=== PATIENT | female | born 1960 | race Caucasian/White ===

== ENCOUNTER 2020-07-08 08:54 | Outpatient (CLI) | payer BC, SELFPAY ==
--- NOTE | ~2020-07-08 | MM_ITS ---
EXAMINATION: MM screening [facility] BI w alen HISTORY: Screening TECHNIQUE: Craniocaudal and mediolateral oblique 3-D tomosynthesis images were obtained and synthetic 2-D images were generated. CAD analysis was submitted and interpreted. COMPARISON: Comparison to multiple prior studies sequentially, with oldest reviewed study dated 12/2013. BREAST PARENCHYMAL COMPOSITION: There are scattered areas of fibroglandular density. FINDINGS: There is no evidence of suspicious mass, calcification, or architectural distortion to sugg est malignancy in either breast. There has been no suspicious interval change. IMPRESSION: 1. No mammographic evidence of malignancy. 2. Recommend routine screening mammography in one year. BI-RADS Category 1: Negative Reviewed, dictated and finalized at location A.
== END 2020-07-08 08:55 | disposition home or self-care (01) ==
LOC: ANHIMG 08:57
PROVIDERS: PCP Family Medicine Sports Medicine; Visit Provider Obstetrics & Gynecology
DX: Z12.31 Encounter for screening mammogram for malignant neoplasm of breast (principal)
CPT/HCPCS: 77063; 77067

== ENCOUNTER 2021-08-01 09:37 | Outpatient (CLI) | payer BC, SELFPAY ==
--- NOTE | ~2021-08-01 | MM_ITS ---
EXAMINATION: MM screening [facility] BI w alen HISTORY: Screening mammogram TECHNIQUE: Craniocaudal and mediolateral oblique 3-D tomosynthesis images were obtained and synthetic 2-D images were generated. CAD analysis was submitted and interpreted. COMPARISON: 07/08/2020, 04/01/2019, 09/28/2017 bilateral screening mammogram examinations BREAST PARENCHYMAL COMPOSITION: There are scattered areas of fibroglandular density. FINDINGS: Possible irregular small masses suggested in the central right breast and in the mid outer upper right breast (MLO Tomosynthesis image 26/80). There is architectural distortion in the upper outer left breast which may be due to prior biopsy. IMPRESSION: 1. Possible right breast masses and architectural distortion on the left 2. Bilateral diagnostic mammography and breast ultrasound examination are recommended. BI-RADS Category 0: Incomplete: Needs additional imaging evaluation. Reviewed, dictated and finalized at location A. IMPRESSION: 1. Possible right breast masses and architectural distortion on the left 2. Bilateral diagnostic mammography and breast ultrasound examination are recom mended. BI-RADS Category 0: Incomplete: Needs additional imaging evaluation.
== END 2021-08-01 09:38 | disposition home or self-care (01) ==
PROVIDERS: PCP Family Medicine Sports Medicine; Visit Provider Student in an Organized Health Care Education/Training Program
DX: Z12.31 Encounter for screening mammogram for malignant neoplasm of breast (principal); R92.8 Other abnormal and inconclusive findings on diagnostic imaging of breast
CPT/HCPCS: 77063; 77067

== ENCOUNTER 2021-09-01 12:58 | Outpatient (CLI) | payer BC, SELFPAY ==
--- NOTE | ~2021-09-01 | MMUS_ITS ---
EXAMINATION: MM diagnostic om[facility] BI w alen, US breast BI complete HISTORY: Possible right breast mass and left breast architectural distortion reported on 08/01/2021 b ilateral screening mammogram TECHNIQUE: Additional 3-D tomosynthesis images of both breasts were performed and synthetic 2-D image s were generated. CAD analysis was submitted and interpreted. High resolution bilateral complete [facility] [facility] ultrasound including all 4 quadrants and subareolar areas was performed. COMPARISON: 08/01/2021 bilateral screening mammogram FINDINGS: MAMMOGRAPHIC FINDINGS: History of prior benign left breast biopsy in 1996. No reproducible suspicious mass or architectural distortion is noted in either breast. ULTRASOUND: In the left breast at 12:00 5 cm from the nipple there is a parallel circumscribed sonolucency measur ing 2.1 x 5.8 x 5.1 mm, consistent with small cyst. No suspicious mass or shadowing of either breast is evident. IMPRESSION: 1. Benign finding; no mammographic evidence of malignancy 2. Routine annual mammographic screening is recommended. BI-RADS Category 2: Benign finding(s). Reviewed, dictated and finalized at location A. 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 Benign finding; no mammographic evidence of malignancy 2. Routine annual mammographic screening is recommended. BI-RADS Category 2: Benign finding(s).
== END 2021-09-01 12:59 | disposition home or self-care (01) ==
LOC: ANHIMG 13:01
PROVIDERS: PCP Family Medicine Sports Medicine; Visit Provider Obstetrics & Gynecology
DX: N60.02 Solitary cyst of left breast (principal); R92.8 Other abnormal and inconclusive findings on diagnostic imaging of breast
CPT/HCPCS: 76641; 77062; 77066; G0279

== ENCOUNTER 2022-10-13 14:07 | Outpatient (CLI) | payer BC, SELFPAY ==
--- NOTE | ~2022-10-13 | MM_ITS ---
EXAMINATION: MM screening [facility] BI w alen HISTORY: Screening mammogram TECHNIQUE: Craniocaudal and mediolateral oblique 3-D tomosynthesis images were obtained and synthetic 2-D images were generated. CAD analysis was submitted and interpreted. COMPARISON: 09/01/2021 bilateral diagnostic mammography and bilateral complete breast ultrasound exam ination 08/01/2021, 07/08/2020, 04/01/2019 bilateral screening mammogram examinations BREAST PARENCHYMAL COMPOSITION: There are scattered areas of fibroglandular density. FINDINGS: There is no evidence of suspicious mass, calcification, or architectural distortion to sugg est malignancy in either breast. There has been no suspicious interval change. IMPRESSION: 1. No mammographic evidence of malignancy. 2. Recommend routine screening mammography in one year. BI-RADS Category 1: Negative Reviewed, dictated and finalized at location A. 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
== END 2022-10-13 14:08 | disposition home or self-care (01) ==
PROVIDERS: PCP Family Medicine Sports Medicine; Visit Provider Obstetrics & Gynecology
DX: Z12.31 Encounter for screening mammogram for malignant neoplasm of breast (principal)
CPT/HCPCS: 77063; 77067

== ENCOUNTER 2023-02-12 02:33 | Day surgery (SDC) | payer BC, SELFPAY ==
[2023-01-29 13:52] VITALS: BMI 29.7
--- NOTE | 2023-02-11 17:04 | PM.HPGS ---
History of Present Illness History of Present Illness Consent: Risks, benefits, and alternatives have been discussed and questions answered. Patient agrees to proceed with procedure. Chief complaint: GERD, neoplasm screening Narrative: Darshana Cheema is a 63 year old female who, despite taking omeprazole 40 mg b.i.d., is having increasing reflux symptoms. For several years she has had vague nearly continuous discomfort in her upper abdomen. It is worse after certain foods. Doubling the dose of omeprazole did not seem to have any benefit. She is not losing weight. She is also due for screening colonoscopy. Review of Systems Review of Systems: All systems reviewed & are unremarkable except as noted in HPI and below PMFSH Surgical History Surgical History H/O laparoscopy DnC 1988 H/O sinus surgery Social History Social History Smoking status: Never smoker Alcohol intake: current Alcohol use details: rare occasional Substance use: never Substance use type: does not use Living arrangements: with family Spiritual care concerns: No Meds Home Medications and Allergies Home Medications Medication Instructions Recorded Confirmed Type albuterol sulfate 90 mcg/actuation 90 mcg inhalation DAILY PRN 05/11/22 01/29/23 History aerosol inhaler Shortness Of Breath Or Wheezing estradiol 1 mg tablet 1 mg PO DAILY 05/11/22 01/29/23 History fluticasone 250 mcg-salmeterol 50 1 inh inhalation DAILY 05/11/22 01/29/23 History mcg/dose blistr powdr for inhalation (Advair Diskus) hydrochlorothiazide 25 mg tablet 25 mg PO DAILY 05/11/22 01/29/23 History meloxicam 15 mg tablet 15 mg PO DAILY 05/11/22 01/29/23 History metoprolol succinate 25 mg 1 tablet PO HS 05/11/22 01/29/23 History tablet,extended release 24 hr omeprazole 40 mg capsule,delayed 40 mg PO DAILY 05/11/22 01/29/23 History release Allergies Allergy/AdvReac Type Severity Reaction Status Date / Time prednisone Allergy Mild Palpitation Verified 02/12/23 07:11 s propoxyphene Allergy Unknown Rash Verified 02/12/23 07:11 Exam Const: General: alert Orientation/consciousness: patient oriented x3 Resp: Auscultation: clear to auscultation bilaterally Cardio: Rhythm: regular rhythm GI: GI Palp: Yes Soft to palpation and No Tenderness to palpation present (GI) Neuro: General: patient oriented x3 Assessment and Plan Assessment and plan (1) GERD (gastroesophageal reflux disease): Code(s): K21.9 - Gastro-esophageal reflux disease without esophagitis Status: Acute Assessment and Plan: EGD with possible biopsy or dilatation or cautery. (2) Colon cancer screening: Code(s): Z12.11 - Encounter for screening for malignant neoplasm of colon Status: Acute Assessment and Plan: Colonoscopy with possible biopsy or polypectomy or cautery or injection of substances.
[2023-02-12 07:12] VITALS: BP 155/78; PULSE 65; RESP 18; TEMP 36.3; O2SAT 100
[2023-02-12] MEDS: LACTATED RINGERS 1,000 ML 150 ML IV CONT (07:29)
--- NOTE | 2023-02-12 07:44 | WPDANESEPPF ---
Anes - Initial Pre Proc Eval Procedure: Operation Date: 02/12/23 08:00 Proposed Procedures p Esophagogastroduodenoscopy & Screening Colonoscopy - Alphonse Lauren MD Date/Time: 02/12/23 07:44 Surgeon: Alphonse Lauren MD Pre Op Diagnosis: GERD, neoplasm screening Patient Data Age: 63 Gender: F Height: 1.6 m Weight: 79.1 kg Last Vital Signs Temp 36.3 C L 02/12/23 07:12 Pulse 65 02/12/23 07:12 Resp 18 02/12/23 07:12 BP 155/78 H 02/12/23 07:12 Pulse Ox 100 02/12/23 07:12 O2 Del Method Room Air 02/12/23 07:12 Allergies Allergy/AdvReac Type Severity Reaction Status Date / Time prednisone Allergy Mild Palpitation Verified 02/12/23 07:11 s propoxyphene Allergy Unknown Rash Verified 02/12/23 07:11 Home Medications Medication Instructions Recorded Confirmed Type albuterol sulfate 90 mcg/actuation 90 mcg inhalation DAILY PRN 05/11/22 01/29/23 History aerosol inhaler Shortness Of Breath Or Wheezing estradiol 1 mg tablet 1 mg PO DAILY 05/11/22 01/29/23 History fluticasone 250 mcg-salmeterol 50 1 inh inhalation DAILY 05/11/22 01/29/23 History mcg/dose blistr powdr for inhalation (Advair Diskus) hydrochlorothiazide 25 mg tablet 25 mg PO DAILY 05/11/22 01/29/23 History meloxicam 15 mg tablet 15 mg PO DAILY 05/11/22 01/29/23 History metoprolol succinate 25 mg 1 tablet PO HS 05/11/22 01/29/23 History tablet,extended release 24 hr omeprazole 40 mg capsule,delayed 40 mg PO DAILY 05/11/22 01/29/23 History release Patient hx anesthesia problems: none Family hx anesthesia problems: none Results Review: All pre-operative results and documents have been reviewed as part of the pre-operative evaluation. [facility], LAT[facility] Past Medical History Medical History (Updated 02/12/23 @ 07:47 by Rafita Valentine MD) Anxiety Asthma HTN (hypertension) MVP (mitral valve prolapse) Surgical History Surgical History H/O laparoscopy DnC 1988 H/O sinus surgery 2-1985 Social History Social History Smoking status: Never smoker Alcohol intake: current Alcohol use details: rare occasional Substance use: never Substance use type: does not use Living arrangements: with family Spiritual care concerns: No Anes - Eval Final PreProcedure Day of Procedure 02/12/23 07:44 Patient weight: obese Heart: regular rate and rhythm Lungs: clear to auscultation and normal air movement Airway: Mallampati scale class II Neurological: alert and oriented Last oral intake: >/= 8 hours ASA classification: III Emergent: no Anesthetic plan: proceed Anesthesia type and monitoring: general GIVS Results Review: All pre-operative results and documents have been reviewed as part of the pre-operative evaluation. Informed Consent: The patient's anesthetic plan and its attendant risks and benefits were discussed with the patient/family/POA. Questions were solicited and answers provided to the satisfaction of the patient/family/POA.
--- NOTE | 2023-02-12 08:09 | SUR.OPER ---
EGD: scope in 0754, scope out 0758 COLON: scope in 0806, scope out 0814
[2023-02-12 08:17] VITALS: BP 108/63; PULSE 72; RESP 20; O2SAT 100
[2023-02-12 08:27] VITALS: BP 123/70; PULSE 76; RESP 22; O2SAT 100
[2023-02-12 08:37] VITALS: BP 123/82; PULSE 64; RESP 14; O2SAT 100
== END 2023-02-12 08:45 | disposition home or self-care (01) ==
PROVIDERS: PCP Family Medicine Sports Medicine; Visit Provider Internal Medicine Gastroenterology
PROC: 0DJ08ZZ Inspection of Upper Intestinal Tract, Via Natural or Artificial Opening Endoscopic (ICD-10-PCS; CPT 43235; principal; 2023-02-12 08:00)
DX: Z12.11 Encounter for screening for malignant neoplasm of colon (principal); K64.8 Other hemorrhoids; K21.9 Gastro-esophageal reflux disease without esophagitis; J45.909 Unspecified asthma, uncomplicated; I10 Essential (primary) hypertension; I34.1 Nonrheumatic mitral (valve) prolapse; Z79.51 Long term (current) use of inhaled steroids; E66.9 Obesity, unspecified; Z68.30 Body mass index [BMI] 30.0-30.9, adult
CPT/HCPCS: 45378; 43239; 88305; J2704; J7120

== ENCOUNTER 2024-03-02 14:45 | Outpatient (CLI) | payer BC, SELFPAY ==
--- NOTE | ~2024-03-02 | MM_ITS ---
EXAMINATION: MM screening [facility] BI w alen HISTORY: Screening TECHNIQUE: Craniocaudal and mediolateral oblique 3-D tomosynthesis images were obtained and synthetic 2-D images were generated. CAD analysis was submitted and interpreted. COMPARISON: Comparison to multiple prior studies sequentially, with oldest reviewed study dated 09/04. BREAST PARENCHYMAL COMPOSITION: There are scattered areas of fibroglandular density. FINDINGS: There is no evidence of suspicious mass, calcification, or architectural distortion to sugg est malignancy in either breast. There has been no suspicious interval change. IMPRESSION: 1. No mammographic evidence of malignancy. 2. Recommend routine screening mammography in one year. BI-RADS Category 1: Negative Reviewed, dictated and finalized at location B.
== END 2024-03-02 14:46 | disposition home or self-care (01) ==
PROVIDERS: PCP Family Medicine Sports Medicine; Visit Provider Obstetrics & Gynecology
DX: Z12.31 Encounter for screening mammogram for malignant neoplasm of breast (principal)
CPT/HCPCS: 77063; 77067

== ENCOUNTER 2025-01-05 06:46 | Emergency (ER) | payer BC, SELFPAY ==
[2025-01-05 06:48] VITALS: BP 99/51; PULSE 80; RESP 17; TEMP 36.2; O2SAT 99
--- OUTSIDE RECORDS SUMMARY | 2025-01-05 06:48 | XMS_ITS | Referral Summary ---
Author Organization [facility] Address [address] [place] [address] Care Team Providers Care Supervisor Inspection Name Role Phone Andres Patel MD Primary Care Provider [phone] Allergies No known active allergies Medications No known medications Active Problems No known active problems Immunizations Immunization Administration Dates Next Due Tdap 06/19/2024 Social History Tobacco Use Types Packs/Day Years Used Date Smoking Tobacco: Never Assessed Personal Safety Answer Date Recorded Have you ever been in or are you currently in a harmful physical or emotional relationship or is someone making you feel afraid or unsafe? 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 Gender Identity Not on file Sexual Orientation Not on file Last Filed Vital Signs Vital Sign Reading Time Taken Comments Blood Pressure 151/78 06/19/2024 4:30 PM CDT Pulse 82 06/19/2024 4:30 PM CDT Temperature 36.7 C (98.1 F) 06/19/2024 12:38 PM CDT Respiratory Rate 16 06/19/2024 4:30 PM CDT Oxygen Saturation 97% 06/19/2024 4:30 PM CDT Inhaled Oxygen Concentration - - Weight 77.1 kg (170 lb) 06/19/2024 10:36 AM CDT Height 160 cm (5' 3 ) 06/19/2024 10:36 AM CDT Body Mass Index 30.11 06/19/2024 10:36 AM CDT Plan of Treatment Not on file [employer] [place] [employer] [employer] Care Teams Supervisor Inspection Relationship Specialty Start Date End Date Andres Patel MD [facility] [place] [address] PCP - General Family Medicine 11/02/21
--- OUTSIDE RECORDS SUMMARY | 2025-01-05 06:48 | XMS_ITS | Data Portability ---
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 Chapter 3 of educational DVD was shown. PSG is medically necessary to determine the management of sleep apnea. We discussed with the patient the impact of weight on: Sleep disordered breathing Hypertension Hyperlipidemia OK We discussed with the patient the benefit of PAP therapy on: Sleep disordered breathing Anxiety Hypertension OK Educated the patient on sleep hygiene measures. Relaxing rituals to rest easy, understanding foods with positive and negative impact on sleep, creating a peaceful sleep environment, timing of exercise, using herbal sleep aids, and practicing sleep-friendly meditation were covered. To determine how much sleep is needed, the patient will assess where she falls on the spectrum, examine what lifestyle factors such as work schedules and stress are affecting the quality and quantity of sleep. In general, adults need 7-9 hours of sleep. Educated the patient regarding foods that promote sleep. These include but are not limited to cherries, bananas, toast, oatmeal, and warm milk. Educated the patient regarding foods and drinks to avoid before bedtime. These include but are not limited to aged cheese, chocolate, spicy foods, tomato-based sauces, soy, ginseng tea and processed meat. Advocated influenza vaccination annually and pneumonia vaccination in 2026. Advocated weight loss through diet and exercise. Patient's ideal body weight according to height and gender is up to Encouraged patient to adjust caloric intake to maintain/achieve ideal body weight, emphasizing on fruits, vegetables, whole grains, and fat-free or low-fat products. These include lean meats, poultry, fish, beans, eggs, and nuts and foods that are low in saturated fats, trans-fats, cholesterol, salt (sodium), and glycemic index. Stressed the importance of regular exercise up to the patient's capacity limits. In this case, we recommend 20 min daily walking, 2 days a week of resistance training. Patient to monitor BP daily and bring records to PCP for further management. Follow-up: 1 week after titration sleep study Not available 05/17/2023 15:59:01 09/06/2023 09/06/2023 Assessment: Early REM onset Mild OSAHS, AHI = 5 Plan: The following were reviewed and explained to the patient: [facility] home sleep study 04/05/23 AHI = 5, supine AHI = 9 [facility] titration sleep study 08/19/23 sleep onset = 1.5 minute, REM onset = 74.5 minutes, Respironics small Dreamwear nasal mask @ 6-8 cmH2O Educated the patient on problems and solutions associated with positive airway pressure (PAP) use. Difficulty tolerating pressure, mask leaks, intolerance of interface, nasal congestion, claustrophobic response, dry mouth, and unintentional mask removal during sleep were covered. Patient has some difficulty tolerating pressure. Patient is advised to practice wearing PAP daily while awake, lower pressure with or without sleeping on sides, activate PAP ramp feature, have blower checked to make sure pressure is set as prescribed and return to sleep center for consideration of auto-adjusting PAP therapy. Patient experiences claustrophobic response. Patient will practice wearing PAP mask daily while awake and undergo PAP desensitization. We will check fit of patient's mask and provide a sleeker alternative as necessary. Dry mouth is a normal occurrence for people who just start out on PAP therapy because they are not used to air blowing in to the throat to hold open. Dry mouth is exacerbated for people who wear nasal PAP mask and whose jaw drops open during sleep. Not only does this create a much less efficient therapy because of leakage, it also causes dry mouth. There are a couple solutions to help prevent this type of problem. A simple solution would be to wear a chinstrap which essentially holds the jaw in place. A second solution would be a switch to a full face mask which covers both the nose and mouth. Although this is another easy solution, using a full face mask for some could seem claustrophobic or confining. There is no silver bullet solution as no single mask is right for everybody. Sometimes it takes a bit of experimentation to find a PAP mask which best meets the patient's needs as well as fits comfortably. Another tactic is to use a humidifier on your PAP machine. Most new PAP machines have integrated humidifiers. Humidification is chawla when dealing with symptoms of dry mouth because the humidifier can supply both warm and room temperate air. Even a small amount of humidity in the airflow will help nasal passages to stay hydrated. If a person is using both a full face mask and a PAP machine with a heated humidifier and is still experiencing dry mouth, an ill-fitted PAP mask might be causing the problem. Leakage can be caused by a mask that is to large or small, the wrong style mask, the cushion is degraded or simply because the mask's straps aren't adjusted correctly. If leakage occurs, dry air from the room can leak in while humidification escapes. The result is reduced humidification within the circuit and resulting in dry throat and mouth. Finally, beyond factors involving the PAP machine and mask, dry mouth can also be caused or worsened by dehydration. The general recommendation to during eight 8 oz. glasses of water a day might be too little for many people. When people drink large amounts of coffee or other caffeine beverages, or sweat a lot during the day, making sure to rehydrate is an important part of PAP therapy. [employer]Med Air Sense 11 auto set unit with heated humidifier, supplies, Respironics small Dreamwear nasal mask @ 6-8 cmH2O ordered. Further titration will be based on clinical response. Provided the patient with a list of local home care stores where positive airway pressure (PAP) units, accoutrement, and services are available. Home care store selection is based on patient's insurance carrier. Patient will setup an appointment with [facility] for supplies and pressure adjustments. A major predictor of success with use of PAP is follow-up with both the respiratory supplier and the treating physician. The respiratory supplier optimally will follow-up within two weeks after starting use while the treating physician optimally will follow-up within 90 days after starting therapy to assess adherence and effectiveness of treatment. The download results can show the treating physician information about adherence to treatment, residual AHI while on treatment and presence of large mask leakage. This information is especially helpful if the patient has residual sleepiness despite treatment. General information on sleep disordered breathing, evaluation of sleep disordered breathing, treatment with PAP therapy, and living with PAP therapy were covered. We discussed with the patient the impact of weight on: Sleep disordered breathing Hypertension Hyperlipidemia OK We discussed with the patient the benefit of PAP therapy on: Sleep disordered breathing Anxiety Hypertension OK Educated the patient on sleep hygiene measures. Relaxing rituals to rest easy, understanding foods with positive and negative impact on sleep, creating a peaceful sleep environment, timing of exercise, using herbal sleep aids, and practicing sleep-friendly meditation were covered. To determine how much sleep is needed, the patient will assess where she falls on the spectrum, examine what lifestyle factors such as work schedules and stress are affecting the quality and quantity of sleep. In general, adults need 7-9 hours of sleep. Educated the patient regarding foods that promote sleep. These include but are not limited to cherries, bananas, toast, oatmeal, and warm milk. Educated the patient regarding foods and drinks to avoid before bedtime. These include but are not limited to aged cheese, chocolate, spicy foods, tomato-based sauces, soy, ginseng tea and processed meat. Advocated influenza vaccination annually and pneumonia vaccination in 2026. Advocated weight loss through diet and exercise. Patient's ideal body weight according to height and gender is up to 135 lbs. Encouraged patient to adjust caloric intake to maintain/achieve ideal body weight, emphasizing on fruits, vegetables, whole grains, and fat-free or low-fat products. These include lean meats, poultry, fish, beans, eggs, and nuts and foods that are low in saturated fats, trans-fats, cholesterol, salt (sodium), and glycemic index. Stressed the importance of regular exercise up to the patient's capacity limits. In this case, we recommend 20 min daily walking, 2 days a week of resistance training. Patient to monitor BP daily and bring records to PCP for further management. Follow-up: 3 months, December 2023 Not available 09/28/2023 17:32:21 12/28/2023 12/28/2023 Assessment: Early REM onset Mild OSAHS, AHI = 5 Plan: The following were reviewed and explained to the patient: [facility] home sleep study 04/05/23 AHI = 5, supine AHI = 9 [facility] titration sleep study 08/19/23 sleep onset = 1.5 minute, REM onset = 74.5 minutes, Respironics small Dreamwear nasal mask @ 6-8 cmH2O PAP compliance downloaded and interpreted x 20 minutes. Data reviewed and explained to the patient. Average apnea/hypopnea index (AHI) is 0.3. Patient used PAP > 4 hours 61% of the time. PAP is set at 6-8 cmH2O. PAP will remain at 6-8 cmH2O. Keep EPR + 2. Ramp start at 4 cmH2O. Keep ramp duration at 10 minutes. Oxygen supplementation: none Patient is benefiting from PAP therapy. Encouraged patient to maintain PAP use more than 70% of the time. Statement of PAP use and benefits will be sent to the home care store. Educated the patient on problems and solutions associated with positive airway pressure (PAP) use. Difficulty tolerating pressure, mask leaks, intolerance of interface, nasal congestion, claustrophobic response, dry mouth, and unintentional mask removal during sleep were covered. Patient has some difficulty tolerating pressure. Patient is advised to practice wearing PAP daily while awake, lower pressure with or without sleeping on sides, activate PAP ramp feature, have blower checked to make sure pressure is set as prescribed and return to sleep center for consideration of auto-adjusting PAP therapy. Patient experiences claustrophobic response. Patient will practice wearing PAP mask daily while awake and undergo PAP desensitization. We will check fit of patient's mask and provide a sleeker alternative as necessary. Dry mouth is a normal occurrence for people who just start out on PAP therapy because they are not used to air blowing in to the throat to hold open. Dry mouth is exacerbated for people who wear nasal PAP mask and whose jaw drops open during sleep. Not only does this create a much less efficient therapy because of leakage, it also causes dry mouth. There are a couple solutions to help prevent this type of problem. A simple solution would be to wear a chinstrap which essentially holds the jaw in place. A second solution would be a switch to a full face mask which covers both the nose and mouth. Although this is another easy solution, using a full face mask for some could seem claustrophobic or confining. There is no silver bullet solution as no single mask is right for everybody. Sometimes it takes a bit of experimentation to find a PAP mask which best meets the patient's needs as well as fits comfortably. Another tactic is to use a humidifier on your PAP machine. Most new PAP machines have integrated humidifiers. Humidification is chawla when dealing with symptoms of dry mouth because the humidifier can supply both warm and room temperate air. Even a small amount of humidity in the airflow will help nasal passages to stay hydrated. If a person is using both a full face mask and a PAP machine with a heated humidifier and is still experiencing dry mouth, an ill-fitted PAP mask might be causing the problem. Leakage can be caused by a mask that is to large or small, the wrong style mask, the cushion is degraded or simply because the mask's straps aren't adjusted correctly. If leakage occurs, dry air from the room can leak in while humidification escapes. The result is reduced humidification within the circuit and resulting in dry throat and mouth. Finally, beyond factors involving the PAP machine and mask, dry mouth can also be caused or worsened by dehydration. The general recommendation to during eight 8 oz. glasses of water a day might be too little for many people. When people drink large amounts of coffee or other caffeine beverages, or sweat a lot during the day, making sure to rehydrate is an important part of PAP therapy. Provided the patient with a list of local home care stores where positive airway pressure (PAP) units, accoutrement, and services are available. Home care store selection is based on patient's insurance carrier. Patient will setup an appointment with [facility] for supplies and pressure adjustments. A major predictor of success with use of PAP is follow-up with both the respiratory supplier and the treating physician. The download results can show the treating physician information about adherence to treatment, residual AHI while on treatment and presence of large mask leakage. This information is especially helpful if the patient has residual sleepiness despite treatment. General information on sleep disordered breathing, evaluation of sleep disordered breathing, treatment with PAP therapy, and living with PAP therapy were covered. We discussed with the patient the impact of weight on: Sleep disordered breathing Hypertension Hyperlipidemia OK We discussed with the patient the benefit of PAP therapy on: Sleep disordered breathing Anxiety Hypertension OK Educated the patient on sleep hygiene measures. Relaxing rituals to rest easy, understanding foods with positive and negative impact on sleep, creating a peaceful sleep environment, timing of exercise, using herbal sleep aids, and practicing sleep-friendly meditation were covered. To determine how much sleep is needed, the patient will assess where she falls on the spectrum, examine what lifestyle factors such as work schedules and stress are affecting the quality and quantity of sleep. In general, adults need 7-9 hours of sleep. Educated the patient regarding foods that promote sleep. These include but are not limited to cherries, bananas, toast, oatmeal, and warm milk. Educated the patient regarding foods and drinks to avoid before bedtime. These include but are not limited to aged cheese, chocolate, spicy foods, tomato-based sauces, soy, ginseng tea and processed meat. Advocated influenza vaccination annually and pneumonia vaccination in 2026. Advocated weight loss through diet and exercise. Patient's ideal body weight according to height and gender is up to 135 lbs. Encouraged patient to adjust caloric intake to maintain/achieve ideal body weight, emphasizing on fruits, vegetables, whole grains, and fat-free or low-fat products. These include lean meats, poultry, fish, beans, eggs, and nuts and foods that are low in saturated fats, trans-fats, cholesterol, salt (sodium), and glycemic index. Stressed the importance of regular exercise up to the patient's capacity limits. In this case, we recommend 20 min daily walking, 2 days a week of resistance training. Patient to monitor BP daily and bring records to PCP for further management. Follow-up: 1 year, December 2024 Not available 12/28/2023 16:21:50 11/29/2024 11/29/2024 Assessment: Early REM onset Mild OSAHS, AHI = 5 Plan: The following were reviewed and explained to the patient: [facility] home sleep study 04/05/23 AHI = 5, supine AHI = 9 [facility] titration sleep study 08/19/23 sleep onset = 1.5 minute, REM onset = 74.5 minutes, Respironics small Dreamwear nasal mask @ 6-8 cmH2O PAP compliance downloaded and interpreted x 20 minutes. Data reviewed and explained to the patient. Average apnea/hypopnea index (AHI) is 0.6. Patient used PAP > 4 hours 67% of the time. PAP is set at 6-8 cmH2O. PAP will remain at 6-8 cmH2O. Keep EPR + 2 multimedia coordinator. Ramp start at 4 cmH2O. Keep ramp duration at 10 minutes. Keep humidifier level on automatic mode. Oxygen supplementation: none Patient is benefiting from PAP therapy. Encouraged patient to maintain PAP use more than 70% of the time. Statement of PAP use and benefits will be sent to the home care store. Educated the patient on problems and solutions associated with positive airway pressure (PAP) use. Difficulty tolerating pressure, mask leaks, intolerance of interface, nasal congestion, claustrophobic response, dry mouth, and unintentional mask removal during sleep were covered. Patient has some difficulty tolerating pressure. Patient is advised to practice wearing PAP daily while awake, lower pressure with or without sleeping on sides, activate PAP ramp feature, have blower checked to make sure pressure is set as prescribed and return to sleep center for consideration of auto-adjusting PAP therapy. Patient experiences claustrophobic response. Patient will practice wearing PAP mask daily while awake and undergo PAP desensitization. We will check fit of patient's mask and provide a sleeker alternative as necessary. Dry mouth is a normal occurrence for people who just start out on PAP therapy because they are not used to air blowing in to the throat to hold open. Dry mouth is exacerbated for people who wear nasal PAP mask and whose jaw drops open during sleep. Not only does this create a much less efficient therapy because of leakage, it also causes dry mouth. There are a couple solutions to help prevent this type of problem. A simple solution would be to wear a chinstrap which essentially holds the jaw in place. A second solution would be a switch to a full face mask which covers both the nose and mouth. Although this is another easy solution, using a full face mask for some could seem claustrophobic or confining. There is no silver bullet solution as no single mask is right for everybody. Sometimes it takes a bit of experimentation to find a PAP mask which best meets the patient's needs as well as fits comfortably. Another tactic is to use a humidifier on your PAP machine. Most new PAP machines have integrated humidifiers. Humidification is chawla when dealing with symptoms of dry mouth because the humidifier can supply both warm and room temperate air. Even a small amount of humidity in the airflow will help nasal passages to stay hydrated. If a person is using both a full face mask and a PAP machine with a heated humidifier and is still experiencing dry mouth, an ill-fitted PAP mask might be causing the problem. Leakage can be caused by a mask that is to large or small, the wrong style mask, the cushion is degraded or simply because the mask's straps aren't adjusted correctly. If leakage occurs, dry air from the room can leak in while humidification escapes. The result is reduced humidification within the circuit and resulting in dry throat and mouth. Finally, beyond factors involving the PAP machine and mask, dry mouth can also be caused or worsened by dehydration. The general recommendation to during eight 8 oz. glasses of water a day might be too little for many people. When people drink large amounts of coffee or other caffeine beverages, or sweat a lot during the day, making sure to rehydrate is an important part of PAP therapy. Provided the patient with a list of local home care stores where positive airway pressure (PAP) units, accoutrement, and services are available. Home care store selection is based on patient's insurance carrier. Patient will setup an appointment with [facility] for supplies and pressure adjustments. A major predictor of success with use of PAP is follow-up with both the respiratory supplier and the treating physician. The download results can show the treating physician information about adherence to treatment, residual AHI while on treatment and presence of large mask leakage. This information is especially helpful if the patient has residual sleepiness despite treatment. General information on sleep disordered breathing, evaluation of sleep disordered breathing, treatment with PAP therapy, and living with PAP therapy were covered. We discussed with the patient the impact of weight on: Sleep disordered breathing Hypertension Hyperlipidemia OK We discussed with the patient the benefit of PAP therapy on: Sleep disordered breathing Anxiety Hypertension OK Educated the patient on sleep hygiene measures. Relaxing rituals to rest easy, understanding foods with positive and negative impact on sleep, creating a peaceful sleep environment, timing of exercise, using herbal sleep aids, and practicing sleep-friendly meditation were covered. To determine how much sleep is needed, the patient will assess where she falls on the spectrum, examine what lifestyle factors such as work schedules and stress are affecting the quality and quantity of sleep. In general, adults need 7-9 hours of sleep. Educated the patient regarding foods that promote sleep. These include but are not limited to cherries, bananas, toast, oatmeal, and warm milk. Educated the patient regarding foods and drinks to avoid before bedtime. These include but are not limited to aged cheese, chocolate, spicy foods, tomato-based sauces, soy, ginseng tea and processed meat. Advocated influenza vaccination annually and pneumonia vaccination in 2026. Advocated weight loss through diet and exercise. Patient's ideal body weight according to height and gender is up to 135 lbs. Encouraged patient to adjust caloric intake to maintain/achieve ideal body weight, emphasizing on fruits, vegetables, whole grains, and fat-free or low-fat products. These include lean meats, poultry, fish, beans, eggs, and nuts and foods that are low in saturated fats, trans-fats, cholesterol, salt (sodium), and glycemic index. Stressed the importance of regular exercise up to the patient's capacity limits. In this case, we recommend 20 min daily walking, 2 days a week of resistance training. Patient to monitor BP daily and bring records to PCP for further management. Follow-up: 1 year, November 2025 Not available 11/29/2024 08:59:36 Plan of Treatment Reminders Order Date Submit Date Provider Last Modified By Organization Details Last Modified Time Details Appointments Follow Up 2025 07:30A Farshad Howard MD Not available Not available Not available Lab None recorded. Referral None recorded. Procedures None recorded. Surgeries None recorded. Imaging polysomno gram, titration study - no auth required 2022 023 [facility], [address] [place], [address], 09/28/2023 17:58:37 Medication Orders None recorded. Patient TargetsNo targets recorded. Patient InstructionsNo instructions recorded. Reason for Referral None Reported. Results Created Date Observation Date Name Description Value Unit Range Abnormal Flag Note LastModifiedBy Organization Detail LastModifiedTime 09/28/2004/05/2023 home sleep study No observ ation record ed. [facility] Not Available 2022 17:50:08 09/28/20 23 08/19/2023 polys omnog [place], titra tion study No observ ation record ed. [facility] [address] [place], [address], 09/28/2023 17:58:37 Result Notes None recorded. Problems Name Problem SNOMED Code Status Onset Date Resolution Date Notes Provider Name and Address Organization Details Recorded Time Obstructive sleep apnea syndrome [id number] Active 023 Darrel Howard MD [address] [facility], [facility] [address], [place], [address], [facility] 16:05:37 Notes:Medical History: Anxie ty Bilateral tinnitus Rhinosinusitis with postnasal drip Early REM onset Obesity with mild OSAHS, AHI = 5, 04/05/23, on autoCPAP c/o IVRC Hypertension Hyperlipidemia MVP OK Vit B12 deficiency Procedure History: ENSS 1993, 1996 Hemorrhoidectomy 1997 Cardiac catheterization 1998 Bilateral bunionectomy 1999 Cholecystectomy 2000 DAVID-BSO 2002 Colonoscopies 2013, 2022 EGD 2016 Cervical fusion 2016 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 Procedures Surgical History Date Name Laterality Status Provider Name and Address Organization Details Recorded Time Hysterectomy completed Johanne Pete MA [facility] 05/17/2023 15:34:57 Cholecystectomy completed Johanne castro MA [facility] 05/17/2023 15:35:03 radical bunionectomy completed Johanne Pete MA [facility] 05/17/2023 15:35:16 Lumpectomy completed Johanne Pete MA [facility] 05/17/2023 15:35:43 Sinus Surgery completed Johanne Pete MA [facility] 05/17/2023 15:35:50 Sinus Surgery completed Johanne Pete MA [facility] 05/17/2023 15:35:53 Neck Surgeries completed Johanne Pete MA [facility] 05/17/2023 15:36:03 Imaging Results Imaging Date Name Status LastModified by Organiz ation Details LastModified Time 04/05/2023 home sleep study completed [facility] Information not available 09/28/2023 17:50:08 08/19/2023 polysomnogram, titration study completed [facility] [address] [place], [address], 09/28/2023 17:58:37 Procedure Notes None recorded. Medical Equipment None Reported. Allergies Allergen ID Allergen Name Allergen Category Reaction Reaction Severity Criticality Documentation Date Start Date Code Code System Note Provider Name and Address Organization Details Recorded Time 91029 prednison e medicatio n Not available Not available Not available 04/07/2023 8640 RxNorm Darrel Howard MD [address] [facility], [address] [address], [place], [address], [facility] [employer] [facility] 19:43:04 67162 Acetamino phen / Propoxyph leonor medicatio n Not available Not available Not available 04/07/2023 [id number] RxAlexei Howard MD [address] [facility], [facility] [address], [place], [address], [facility] [employer] [facility] 19:43:12 Medications Name Sig Start Date Stop Date Status Note LastModified by Organization Details LastModified Time binaxnow cov kit home benoit 05/17 completed Not Available Not Available Not Available cyclobenzap rine 10 mg tablet TAKE 1 TABLET BY MOUTH EVERY NIGHT AT BEDTIME NEEDED active Not Available Not Available No t Available amoxicillin 500 mg capsule TAKE ONE CAPSULE BY MOUTH EVERY 8 HOURS UNTIL ALL TAKEN 05/17 completed Not Available Not Available Not Available doxycycline hyclate 100 mg capsule 05/17 completed Not Available Not Available Not Available trazodone 50 mg tablet TAKE 1 TABLET BY MOUTH EVERY NIGHT AT BEDTIME 05/17 completed Not Available Not Available Not Available azithromyci n 250 mg tablet TAKE 2 TABLETS BY MOUTH FOR 1 DAY THEN TAKE 1 TABLET BY MOUTH DAILY FOR 4 DAYS 11/17 completed Not Available Not Available Not Available ibuprofen 800 mg tablet TAKE 1 TABLET BY MOUTH THREE TIMES DAILY active Not Available Not Available No t Available fluconazole 150 mg tablet TAKE 1 TABLET BY MOUTH DAILY 12/27 completed Not Available Not Available Not Available meloxicam 15 mg tablet TAKE 1 TABLET BY MOUTH EVERY DAY 11/29 completed Not Available Not Available Not Available acetaminoph en 300 mg-codeine 30 mg tablet TAKE 1 TABLET BY MOUTH EVERY 4 TO 6 HOURS NEEDED FOR PAIN 05/17 completed Not Available Not Available Not Available sulfamethox azole 800 mg-trimetho prim 160 mg tablet 05/17 completed Not Available Not Available Not Available omeprazole 40 mg capsule,del ayed release TAKE 1 CAPSULE BY MOUTH TWICE DAILY 12/27 completed Not Available Not Available Not Available meloxicam 7.5 mg tablet Take 1 tablet 3 times a day by oral route. active Not Available Not Available No t Available hydrocortis one 2.5 % topical cream with perineal applicator APPLY RECTALLY TO THE AFFECTED AREA TWICE DAILY DIRECTED active Not Available Not Available No t Available estradiol 1 mg tablet TAKE 1 TABLET BY MOUTH EVERY DAY active Not Available Not Available No t Available pantoprazol e 40 mg tablet,noah yed release TAKE 1 TABLET BY MOUTH EVERY DAY active Not Available Not Available No t Available tacrolimus 0.1 % topical ointment APPLY EXTERNALL Y TO RASH AREAS ON FACE TWICE DAILY FOR FLARES active Not Available Not Available No t Available lidocaine 5 % topical patch active Not Available Not Available Not Available hydroxyzine HCl 25 mg tablet TAKE 1 TABLET BY MOUTH EVERY 8 HOURS NEEDED 05/17 completed Not Available Not Available Not Available hydrochloro thiazide 25 mg tablet TAKE 1 TABLET BY MOUTH EVERY DAY 12/27 completed Not Available Not Available Not Available metoprolol succinate ER 25 mg tablet,exte nded release 24 hr TAKE 1 TABLET BY MOUTH EVERY DAY active Not Available Not Available No t Available albuterol sulfate HFA 90 mcg/actuati on aerosol inhaler INHALE 2 PUFFS BY MOUTH EVERY 4 HOURS NEEDED FOR SHORTNESS OF BREATH active Not Available Not Available No t Available cefdinir 300 mg capsule TAKE ONE CAPSULE BY MOUTH TWICE DAILY 11/30 completed Not Available Not Available Not Available diazepam 5 mg tablet PRN before dental appts active Not Available Not Available No t Available amoxicillin 875 mg-potassiu m clavulanate 125 mg tablet TAKE 1 TABLET BY MOUTH TWICE DAILY FOR 7 DAYS 11/29 completed Not Available Not Available Not Available escitalopra m 10 mg tablet TAKE 1 TABLET BY MOUTH EVERY MORNING 05/17 completed Not Available Not Available Not Available hydrochloro thiazide 12.5 mg tablet TAKE 1 TABLET BY MOUTH DAILY active Not Available Not Available No t Available Trelegy Ellipta 100 mcg-62.5 mcg-25 mcg powder for inhalation 05/17 completed Not Available Not Available Not Available Jonn Ellipta 200 mcg-62.5 mcg-25 mcg powder for inhalation INHALE 1 PUFF BY MOUTH DAILY FAST BREATH INHALE QUICKLY AND DEEPLY active Not Available Not Available No t Available BinaxNOW COVID-19 Ag Self Test kit TEST DIRECTED TODAY 05/17 completed Not Available Not Available Not Available Paxlovid 300 mg (150 mg x 2)-100 mg tablets in a dose pack FOLLOW PACKAGE DIRECTION S 05/17 completed Not Available Not Available Not Available Vitals Date Recorded Body weight Body mass index (BMI) Body height Body temperature Heart rate Oxygen saturation Oxygen saturation in Arterial blood by Pulse oximetry Systolic blood pressure Diastolic blood pressure Provider Name and Address Organization Details Last Updated DateTime 3 25100.5 6 g 28.9 kg/m2 160.02 cm 98.3 [degF] 71 /min 97 % 97 % 114 mm[Hg] 68 mm[Hg] Johanne Pete MA [facility] 15:39:05 Date Recorded Heart rate Respiratory rate Provider N lili and Address Organization Details Last Updated DateTime 05/17/2023 71 /min 15 /min Darrel Howard MD [address], [place], [address], [facility] 05/17/2023 15:47:51 Date Recorded Body height Body mass index (BMI) Body weight Body temperature Heart rate Oxygen saturation Oxygen saturation in Arterial blood by Pulse oximetry Systolic blood pressure Diastolic blood pressure Provider Name and Address Organization Details Last Updated DateTime 3 160.02 cm 30.1 kg/m2 45824.7 g 98.2 [degF] 72 /min 97 % 97 % 138 mm[Hg] 80 mm[Hg] Johanne Pete MA [facility] 17:15:27 Date Recorded Heart rate Respiratory rate Provider N lili and Address Organization Details Last Updated DateTime 09/06/2023 72 /min 15 /min Darrel Howard MD [address], [place], [address], [facility] 09/06/2023 17:31:55 Date Recorded Body height Body mass index (BMI) Body weight Body temperature Heart rate Oxygen saturation Oxygen saturation in Arterial blood by Pulse oximetry Systolic blood pressure Diastolic blood pressure Provider Name and Address Organization Details Last Updated DateTime 4 160.02 cm 30.9 kg/m2 20622.2 3 g 98 [degF] 76 /min 96 % 96 % 114 mm[Hg] 68 mm[Hg] Maura Jolley MA [facility] 4 16:04:49 Date Recorded Heart rate Respiratory rate Provider N lili and Address Organization Details Last Updated DateTime 12/28/2023 76 /min 15 /min Darrel Howard MD [address] [facility], [address], [place], [address], [facility] 12/28/2023 16:21:31 Date Recorded Body height Body mass index (BMI) Body weight Body temperature Heart rate Oxygen saturation Oxygen saturation in Arterial blood by Pulse oximetry Systolic blood pressure Diastolic blood pressure Provider Name and Address Organization Details Last Updated DateTime 5 160.02 cm 31.5 kg/m2 49935 g 98.3 [degF] 66 /min 99 % 99 % 110 mm[Hg] 68 mm[Hg] Maura Jolley MA [facility] 5 08:35:05 Date Recorded Heart rate Respiratory rate Provider N lili and Address Organization Details Last Updated DateTime 11/29/2024 66 /min 15 /min Darrel Howard MD [address], [address], [place], [address] [facility] 11/29/2024 08:52:28 Social History Question Answer Notes LastModified by Organizat ion Details LastModified Time Tobacco Smoking Status Never Smoker Johanne Pete MA null, [facility] 05/17/2023 15:33:07 What Is Your Level Of Alcohol Consumption? None Information not available 05/17/2023 What Is Your Level Of Caffeine Consumption? Moderate Information not available 05/17/2023 In The 14 Days Before Symptom Onset, Have You Had Close Contact [facility] While That Case Was Ill? No Information not available 05/17/2023 In The 14 Days Before Symptom Onset, Have You Had Close Contact With A Person Who Is Under Investigation For COVID-19 While That Person Was Ill? No Information not available 05/17/2023 Are You Currently Employed? Yes Information not available 05/17/2023 What Type Of Diet Are You Following? REGULAR Information not available 05/17/2023 Do You Have An Electrostatic Air Filter? 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 Yes Information not available 05/17/2023 Do You Have A Humidifier? No Information not available 05/17/2023 Where Do You Live? [facility] Information not available 12/28/2023 Do You Have Moisture Problems In Your Home? No Information not available 05/17/2023 What Was The Date Of Your Most Recent Tobacco Screening? 11/29/2024 Information not available 11/29/2024 How Many Children Do You Have? 0 Information not available 11/29/2024 Do You Have Any Pets? Yes Information not available 05/17/2023 What Is Your Relationship Status? Information not available 11/29/2024 Do You Use Your Seat Belt Or Car Seat Routinely? Yes Information not available 05/17/2023 Do You Have Smoke And Carbon Monoxide Detectors In Your Home? Yes Information not available 05/17/2023 Are You Passively Exposed To Smoke? Yes Only Outside Information not available 05/17/2023 Do You Feel Stressed (tense, Restless, Nervous, Or Anxious, Or Unable To Sleep At Night)? [id number] Information not available 12/28/2023 Do You Use Any Illicit Or Recreational Drugs? No Information not available 05/17/2023 Do You Use Sunscreen Routinely? No Information not available 05/17/2023 Have You Recently Traveled Abroad? No Information not available 05/17/2023 Do You Have Any Dietary Restrictions? No Information not available 05/17/2023 Sex: Unknown Functional Status Question Answer Note LastModified by Organization D etails LastModified Time What is your exercise level? Moderate Information not available 05/17/2023 Mental Status None recorded. Family History Relationship Description Onset Age of this Age Resolved Age Notes LastModified by Organization Details LastModified Time Brother Obstructive sleep apnea syndrome Not available 2022 15:57:34 Son Obstructive sleep apnea syndrome Not available 2022 15:57:38 Mother Congestive heart failure Not available 2022 15:57:49 Father Malignant tumor of lung Not available 2022 15:58:03 Sister Fibromyalgia Not availab le 05/17/2023 15:58:28 Maternal Uncle Heart disease Not available 2022 15:58:48 Medical History No medical history recorded. Gynecological HistoryNo gynecological history recorded. Obstetrics History GPAL:G 0 P 0 0 0 0 Past Encounters Encounter ID Performer Location Encounter Start Date Encounter Closed Date Diagnosis/Indication Diagnosis SNOMED-CT Code Diagnosis ICD10 Code Diagnosis Note [id number] Darrel Howard MD [facility] [address] [address] 05/17/2023 15:13:38 05/18/2023 09:39:38 Obstructive sleep apnea syndrome 50022348 G47.33 G47.30 G47.36 G47.61 [id number] Darrel Howard MD [facility] [address] [address] 09/06/2023 16:58:38 09/08/2023 09:52:40 Obstructive sleep apnea syndrome 30359565 G47.33 [id number] Darrel Howard MD [facility] [address] [address] 12/28/2023 15:54:45 12/29/2023 08:10:16 Obstructive sleep apnea syndrome 45522725 G47.33 [id number] Darrel Howard MD [facility] [address] [address] 11/29/2024 08:26:11 11/29/2024 09:15:52 Obstructive sleep apnea syndrome 46670652 G47.33 Health Concerns Section Related Observation LastModified by Organization Detai ls LastModified Time None Recorded Concern Status LastModified by Organization Details LastModified Time None Recorded Advance Directives Directive None Recorded Payers Encounter Date Sequence Insurance Name Policy Number Policy Saba Covered Member ID Saba Member ID Guarantor Name 09/06/2023 1 [place] [id number] Darshana P Whiting [id number] Darshana P Whiting 12/28/2023 1 [place] [id number] Darshana P Whiting [id number] Darshana P Whiting 11/29/2024 1 [place] [id number] Darshana P Whiting [id number] Darshana P Whiting Notes Date Note Type Note Provider Name and Address Organization Details Recorded Time 05/17/2023 text/html Primary care/Ref erring provider: Andres Patel MD During the [facility] home sleep study on 04/05/23, AHI = 10, supine AHI = 16.At home, the patient sleeps from 10:30 pm to 5:30 am and wakes up with an alarm. Snoring: moderate, since .Snorting: yesChoking: yesCoughing: noGasping: yesGagging: noSighing: noWitnessed apnea: yesTwitching or jerking of leg(s), arm(s), body, head: yesTeeth grinding: noTeeth clenching: noSleeptalking: yesSleepwalking: noSleep crying: noBedwetting: noTongue/lip/gum/cheek biting: yesSleeping with open mouth: yesSleep paralysis: noHypnagogic hallucinations: noHypnopompic hallucinations: noVivid dreams: noDifficulty with sleep onset: noDifficulty with sleep maintenance: yesSleep interruptions: for no known reasonsPatient wakes up with: fatigue, xerostomia, sore throat, hoarse voice, headaches, cognitive impairment, mobility impairment, dexterity impairmentDaytime cataplexy: noMorning hypersomnolence: noAfternoon hypersomnolence: yesCaffeine sources in diet: coffee 32 oz per day, chocolate 1 candy bar per day Associated medical and psychiatric conditions:Congestive heart failure: noCoronary artery disease: noMyocardial infarction: noHypertension: yesStroke: noBronchial asthma: noChronic obstructive pulmonary disease: noDepression: noBipolar disorder: noAnxiety: yesPanic disorder: noPosttraumatic stress disorder: noAttention deficit and hyperactivity disorder: noObsessive Compulsive disorder: noSchizophrenia: noSchizoaffective disorder: noPersonality disorder: noChronic analgesic use: noChronic sedative/hypnotic use: no EPWORTH SLEEPINESS SCALE (ESS) CHANCE OF DOZING SCORE0 = would never doze1 = slight chance of dozing2 = moderate chance of dozing3 = high chance of dozing SITUATION AND CHANCE OF DOZINGSitting and reading - 3Watching television - 3Sitting inactive in a public place (e.g. a theater or meeting) - 3As a passenger in a car for an hour without a break - 3Lying down to rest in the afternoon when circumstances permit - 3Sitting and talking to someone - 0Sitting quietly after lunch without alcohol - 3In a car, while stopped for a few minutes in the traffic - 0TOTAL SCORE 18Subjectively, patient has a high chance of dozing. Darrel Howard MD [address] [place] [address], [address], [facility] 05/17/2023 16:17:39 09/06/2023 text/html Primary care/Ref erring provider: Mahesh Hernandez MD During the [facility] home sleep study on 04/05/23, AHI = 5, supine AHI = 9. During the [facility] titration sleep study on 08/19/23, sleep onset = 1.5 minute, REM onset = 74.5 minutes. The patient uses a ResMed AirSense 11 autoset unit with heated humidification. The patient does not need the ramp to start low and go up slowly on the pressure. There is some xerostomia in a.m. There is no hose/mask condensation with water. The patient wears a Respironics small Dreamwear nasal mask without chin strap. There is no claustrophobia, no nostril/nose bridge irritation, no facial rash, no facial numbness, no nosebleeding. The patient feels more refreshed upon waking and daytime alertness is improved. Energy levels are sustained for the remainder of the day. At home, the patient sleeps from 10:30 pm to 5:30 am and wakes up with an alarm. Snoring: moderate, since .Snorting: yesChoking: yesCoughing: noGasping: yesGagging: noSighing: noWitnessed apnea: yesTwitching or jerking of leg(s), arm(s), body, head: yesTeeth grinding: noTeeth clenching: noSleeptalking: yesSleepwalking: noSleep crying: noBedwetting: noTongue/lip/gum/cheek biting: yesSleeping with open mouth: yesSleep paralysis: noHypnagogic hallucinations: noHypnopompic hallucinations: noVivid dreams: noDifficulty with sleep onset: noDifficulty with sleep maintenance: yesSleep interruptions: for no known reasonsPatient wakes up with: fatigue, xerostomia, sore throat, hoarse voice, headaches, cognitive impairment, mobility impairment, dexterity impairmentDaytime cataplexy: noMorning hypersomnolence: noAfternoon hypersomnolence: yesCaffeine sources in diet: coffee 32 oz per day, chocolate 1 candy bar per day Associated medical and psychiatric conditions:Congestive heart failure: noCoronary artery disease: noMyocardial infarction: noHypertension: yesStroke: noBronchial asthma: noChronic obstructive pulmonary disease: noDepression: noBipolar disorder: noAnxiety: yesPanic disorder: noPosttraumatic stress disorder: noAttention deficit and hyperactivity disorder: noObsessive Compulsive disorder: noSchizophrenia: noSchizoaffective disorder: noPersonality disorder: noChronic analgesic use: noChronic sedative/hypnotic use: no EPWORTH SLEEPINESS SCALE (ESS) CHANCE OF DOZING SCORE0 = would never doze1 = slight chance of dozing2 = moderate chance of dozing3 = high chance of dozing SITUATION AND CHANCE OF DOZINGSitting and reading - 2Watching television - 3Sitting inactive in a public place (e.g. a theater or meeting) - 1As a passenger in a car for an hour without a break - 2Lying down to rest in the afternoon when circumstances permit - 3Sitting and talking to someone - 0Sitting quietly after lunch without alcohol - 2In a car, while stopped for a few minutes in the traffic - 0TOTAL SCORE 13Subjectively, patient has a moderate chance of dozing. Darrel Howard MD [address] [place] [address], [facility] [address], [place], [address], [facility] [employer] 09/28/2023 17:32:26 12/28/2023 text/html Primary care/Ref erring provider: Mahesh Hernandez MD CC: The nasal mask causes xerostomia and I switched to full face mask. During the [facility] home sleep study on 04/05/23, AHI = 5, supine AHI = 9. During the [facility] titration sleep study on 08/19/23, sleep onset = 1.5 minute, REM onset = 74.5 minutes. At home since 11/26/23, the patient uses a ResMed AirSense 11 autoset unit with heated humidification. The patient does not need the ramp to start low and go up slowly on the pressure. There is some xerostomia in a.m. There is no hose/mask condensation with water. The patient wears a ResMed wide AirFit F30i full face mask without chin strap. There is no claustrophobia, no nostril/nose bridge irritation, no facial rash, no facial numbness, no nosebleeding. The patient feels more refreshed upon waking and daytime alertness is improved. Energy levels are sustained for the remainder of the day. At home, the patient sleeps from 10:30 pm to 5:30 am and wakes up with an alarm. Snoring: moderate, since .Snorting: yesChoking: yesCoughing: noGasping: yesGagging: noSighing: noWitnessed apnea: yesTwitching or jerking of leg(s), arm(s), body, head: yesTeeth grinding: noTeeth clenching: noSleeptalking: yesSleepwalking: noSleep crying: noBedwetting: noTongue/lip/gum/cheek biting: yesSleeping with open mouth: yesSleep paralysis: noHypnagogic hallucinations: noHypnopompic hallucinations: noVivid dreams: noDifficulty with sleep onset: noDifficulty with sleep maintenance: yesSleep interruptions: for no known reasonsPatient wakes up with: fatigue, xerostomia, sore throat, hoarse voice, headaches, cognitive impairment, mobility impairment, dexterity impairmentDaytime cataplexy: noMorning hypersomnolence: noAfternoon hypersomnolence: yesCaffeine sources in diet: coffee 32 oz per day, chocolate 1 candy bar per day Associated medical and psychiatric conditions:Congestive heart failure: noCoronary artery disease: noMyocardial infarction: noHypertension: yesStroke: noBronchial asthma: noChronic obstructive pulmonary disease: noDepression: noBipolar disorder: noAnxiety: yesPanic disorder: noPosttraumatic stress disorder: noAttention deficit and hyperactivity disorder: noObsessive Compulsive disorder: noSchizophrenia: noSchizoaffective disorder: noPersonality disorder: noChronic analgesic use: noChronic sedative/hypnotic use: no EPWORTH SLEEPINESS SCALE (ESS) CHANCE OF DOZING SCORE0 = would never doze1 = slight chance of dozing2 = moderate chance of dozing3 = high chance of dozing SITUATION AND CHANCE OF DOZINGSitting and reading - 3Watching television - 3Sitting inactive in a public place (e.g. a theater or meeting) - 2As a passenger in a car for an hour without a break - 3Lying down to rest in the afternoon when circumstances permit - 2Sitting and talking to someone - 0Sitting quietly after lunch without alcohol - 2In a car, while stopped for a few minutes in the traffic - 0TOTAL SCORE 15Subjectively, patient has a moderate chance of dozing. Darrel Howard MD [address] [place] [address], [phone], [facility] 12/28/2023 16:22:01 11/29/2024 text/html Primary care/Ref erring provider: Mahesh Hernandez MD During the [facility] home sleep study on 04/05/23, AHI = 5, supine AHI = 9. During the [facility] titration sleep study on 08/19/23, sleep onset = 1.5 minute, REM onset = 74.5 minutes. At home since 12/28/23, the patient uses a ResMed AirSense 11 autoset unit with heated humidification. The patient does not need the ramp to start low and go up slowly on the pressure. There is some xerostomia in a.m. There is no hose/mask condensation with water. The patient wears a ResMed medium AirFit F30i full face mask without chin strap. There is no claustrophobia, no nostril/nose bridge irritation, no facial rash, no facial numbness, no nosebleeding. The patient feels more refreshed upon waking and daytime alertness is improved. Energy levels are sustained for the remainder of the day. At home, the patient sleeps from 10:30 pm to 5:30 am and wakes up with an alarm. Snoring: moderate, since .Snorting: yesChoking: yesCoughing: noGasping: yesGagging: noSighing: noWitnessed apnea: yesTwitching or jerking of leg(s), arm(s), body, head: yesTeeth grinding: noTeeth clenching: noSleeptalking: yesSleepwalking: noSleep crying: noBedwetting: noTongue/lip/gum/cheek biting: yesSleeping with open mouth: yesSleep paralysis: noHypnagogic hallucinations: noHypnopompic hallucinations: noVivid dreams: noDifficulty with sleep onset: noDifficulty with sleep maintenance: yesSleep interruptions: for no known reasonsPatient wakes up with: fatigue, xerostomia, sore throat, hoarse voice, headaches, cognitive impairment, mobility impairment, dexterity impairmentDaytime cataplexy: noMorning hypersomnolence: noAfternoon hypersomnolence: yesCaffeine sources in diet: coffee 32 oz per day, chocolate 1 candy bar per day Associated medical and psychiatric conditions:Congestive heart failure: noCoronary artery disease: noMyocardial infarction: noHypertension: yesStroke: noBronchial asthma: noChronic obstructive pulmonary disease: noDepression: noBipolar disorder: noAnxiety: yesPanic disorder: noPosttraumatic stress disorder: noAttention deficit and hyperactivity disorder: noObsessive Compulsive disorder: noSchizophrenia: noSchizoaffective disorder: noPersonality disorder: noChronic analgesic use: noChronic sedative/hypnotic use: no EPWORTH SLEEPINESS SCALE (ESS) CHANCE OF DOZING SCORE0 = would never doze1 = slight chance of dozing2 = moderate chance of dozing3 = high chance of dozing SITUATION AND CHANCE OF DOZINGSitting and reading - 3Watching television - 3Sitting inactive in a public place (e.g. a theater or meeting) - 3As a passenger in a car for an hour without a break - 3Lying down to rest in the afternoon when circumstances permit - 2Sitting and talking to someone - 0Sitting quietly after lunch without alcohol - 2In a car, while stopped for a few minutes in the traffic - 0TOTAL SCORE 16Subjectively, patient has a moderate chance of dozing. Darrel Howard MD [address] [place] [address], [place] [address], [place], [address], [place] - [facility] 11/29/2024 08:59:54 OBGyn Episode No OBEpisode recorded.
--- OUTSIDE RECORDS SUMMARY | 2025-01-05 06:48 | XMS_ITS ---
Author Organization [facility] Reason for Referral No Reasons for Referral Entered Social History Social History Observation Description Start Date End Date Code Code System Current Smoking Status Tobacco smoking consumption unknown [id number] SNOMED CT Sex Assigned At Female 1960 77866-5 LOINC
--- OUTSIDE RECORDS SUMMARY | 2025-01-05 06:48 | XMS_ITS | Clinical Summary ---
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 Gender Identity Not on file Sexual Orientation Not on file Obstetrics History Last Filed Vital Signs Vital Sign Reading [...] 06/19/2024 10:36 AM CDT Plan of Treatment Health Maintenance Due Date Last Done Comments Breast Cancer Screening-Mammogram 1960 Colon Cancer Screening-Colonoscopy 1962 Depression Screening 1962 Hepatitis C Screening 1962 Hepatitis B Screening 01/19/1980 Regular Well Visit/Exam 18-64 01/19/1980 Pneumococcal vaccine <65 (1 of 2 - PCV) 1981 Zoster Vaccine (1 of 2) 01/19/2012 Covid-19 Vaccine (3 - season) 2024, 06/01/2021 Influenza Vaccine (#1) 2024 07/28/2020 DTaP/Tdap/Td Vaccine (2 - Td or Tdap) 06/19/2034 [place] [facility] [facility] WORKERS COMPENSATION [facility] Care Teams Chicken Handler Relationship Specialty Start Date End Date Andres Patel MD [address] [place] [address] PCP - General Family Medicine 11/02/21
--- OUTSIDE RECORDS SUMMARY | 2025-01-05 06:49 | XMS_ITS | Clinical Summary ---
Author Organization [facility] [employer] Address [address] [place] [address] Care Team Providers Care Education Professional Name Role Phone Mahesh Hernandez MD Primary Care Provider [phone] Source Comments [facility],non-owned Affiliates and Associated Physician Practices is amultiple site organization consisting of ambulatory clinics and hospital sitesin [place], [place], [place] and [place]. This disclosure is being madepursuant to the Care Everywhere program and may not contain all information available regarding this patient. Last updated 18.[facility] [employer] Allergies Active Allergy Reactions Criticality Noted Date Comments Corticosteroids Other 08/14/2016 tachycardia Medications * Be aware that medications may not be up to date on this document. Alwaysverify current medications with the patient. Medication Sig Dispensed Refills Start Date End Date Status estradiol (ESTRACE) 1 MG tablet Take 1 mg by mouth once daily Active Fluticasone-Salmete rol (ADVAIR HFA IN) Activ e Meloxicam (MOBIC PO) Active Montelukast Sodium (SINGULAIR PO) Active TiZANidine HCl (ZANAFLEX PO) Active ALBUTEROL SULFATE HFA IN Active omeprazole (PRILOSEC) 20 MG capsule Take 20 mg by mouth daily before breakfast Active benzonatate (TESSALON) 100 MG capsuleIndications: Cough Take 1 capsule by mouth 3 times daily as needed for Cough Reasons: Cough 30 capsule 09/30/2017 Active Social History Tobacco Use Types Packs/Day Years Used Date Smoking Tobacco: Passive Smo ke Exposure - Never Smoker Smokeless Tobacco: Never Sex and Gender Information Value Date Recorded Sex Assigned at Not on file Gender Identity Not on file Sexual Orientation Not on file Last Filed Vital Signs Vital Sign Reading Time Taken Comments Blood Pressure 112/64 09/30/2017 10:10 AM UNIVERSITY RELATIONS VICE PRESIDENT Pulse 58 09/30/2017 10:10 AM UNIVERSITY RELATIONS VICE PRESIDENT Temperature 36.9 C (98.5 F) 09/30/2017 10:10 AM UNIVERSITY RELATIONS VICE PRESIDENT Respiratory Rate 16 09/30/2017 10:10 AM UNIVERSITY RELATIONS VICE PRESIDENT Oxygen Saturation 99% 09/30/2017 10:10 AM UNIVERSITY RELATIONS VICE PRESIDENT Inhaled Oxygen Concentration - - Weight 78.5 kg (173 lb) 09/30/2017 10:10 AM UNIVERSITY RELATIONS VICE PRESIDENT Height 162.6 cm (5' 4 ) 09/30/2017 10:10 AM UNIVERSITY RELATIONS VICE PRESIDENT Body Mass Index 29.7 09/30/2017 10:10 AM UNIVERSITY RELATIONS VICE PRESIDENT Plan of Treatment Health Maintenance Due Date Last Done Comments COLOGUARD (AGES 45-75) - COL ON CA SCREENING 1962 COLON MONITORING 1962 COLONOSCOPY - COLON CA SCREENING 1962 CT COLONOGRAPHY - COLON CA SCREENING 1962 Colorectal Cancer Screening 1962 FIT - COLON CA SCREENING 1962 FLEX SIG - COLON CA SCREENING 1962 LIPID TESTING 1962 MAMMOGRAM 1962 PAP SMEAR 1962 HIV SCREENING 1977 HEPATITIS C SCREENING 01/14/1980 DTAP/TDAP/TD VACCINES (1 - Tdap) 1981 PNEUMOCOCCAL VACCINE 50+ (1 of 1 - PCV) 01/19/2012 ZOSTER VACCINE (1 of 2) 01/19/2012 SCREENING FOR DIABETES 08/05/2017 COVID-19 VACCINE (1 - 2023-2 5 season) 2024 INFLUENZA VACCINE (#1) 2024 DEPRESSION SCREENING 10/04/2024 Respiratory Syncytial Virus (RSV) Vaccine Pt: or over 60 yrs (1 - 1-dose 75+ series) 2037 HEPATITIS B VACCINE Aged Out No longe r eligible based on patient's age to complete this topic HIB VACCINE Aged Out No longer eligi ble based on patient's age to complete this topic HPV VACCINE Aged Out No longer eligi ble based on patient's age to complete this topic MENINGOCOCCAL (Group B) VACC INE SHARED DECISION-MAKING Aged Out No longer eligibl e based on patient's age to complete this topic MENINGOCOCCAL GROUPS A/C/Y/W VACCINE Aged Out No longer eligible b ased on patient's age to complete this topic PNEUMOCOCCAL VACCINE Aged Out No long er eligible based on patient's age to complete this topic Care Teams Education Professional Relationship Specialty Start Date End Date Mahesh Hernandez MD [facility] [place] [address] PCP - General Family Medicine 08/14/16
[2025-01-05 07:02] VITALS: BP 117/70; PULSE 73; RESP 15; O2SAT 98
[2025-01-05] MEDS: ONDANSETRON INJ 4 MG/2 ML VIAL IV PUSH (07:08)
[2025-01-05] MEDS: SODIUM CHLORIDE 0.9% IV 1,000 ML 999 ML IV CONT (07:08)
[2025-01-05 07:17] LABS: Basophils Percent Auto 0.3 % (0.2-1.2); Eosinophils Absolute Auto 0.2 K/mm3 (0-0.3); Eosinophils Percent Auto 1.5 % (0-4.4); Hematocrit 38.2 % (37.0-47.0); Hemoglobin 12.8 g/dL (12.0-15.0); Immature Granulocyte Absolute 0.04 K/mm3 (0.00-0.031); Immature Granulocyte Percent A 0.4 % (0-0.5); Lymphocytes Absolute Auto 1.46 K/mm3 (0.9-3.2); Lymphocytes Percent Auto 13.9 % (18.3-44.2); Mean Corpuscular HGB Conc 33.5 g/dl (32-36); Mean Corpuscular Hemoglobin 31.5 pg (26-34); Mean Corpuscular Volume 94.1 fl (80-100); Mean Platelet Volume 9.6 fl (7.4-10.4); Monocytes Absolute Auto 1.1 K/mm3 (0.1-0.6); Monocytes Percent Auto 10.5 % (2.6-8.5); Neutrophils Absolute Auto 7.7 K/mm3 (1.3-6.7); Neutrophils Percent Auto 73.4 % (45.5-73.1); Platelet Count Result 287 k/mm3 (150-375); Red Blood Count 4.06 M/mm3 (4.2-5.4); Red Cell Distribution Width 12.7 % (11.5-14.5); White Blood Count 10.5 K/mm3 (4.5-10.0)
--- NOTE | 2025-01-05 07:17 | ED_ITS ---
HPI - General Adult General Chief complaint: Nausea/Vomiting/Diarrhea Stated complaint: I am extremely dehydrated Time Seen by Provider: 01/05/25 06:56 History of Present Illness HPI narrative: 64-year-old female presented emergency department for evaluation for nausea vomiting diarrhea that has been progressive since Wednesday evening. Patient did have follow-up with her primary care physician yesterday and was started on an antibiotic for sinus infection provided Zofran for nausea control. Patient states that she did not yet fill her Zofran. Patient reports that last night she was having excessive amounts diarrhea so she presented the ED for evaluation. Patient denies any current abdominal pain. Patient is resting comfortably at time of evaluation. Related Data Home Medications ?Medication ?Instructions ?Recorded ?Confirmed ?Last Taken ?Type albuterol sulfate 90 mcg/actuation 90 mcg inhalation DAILY PRN 05/11/22 01/29/23 Unknown History aerosol inhaler Shortness Of Breath Or Wheezing estradiol 1 mg tablet 1 mg PO DAILY 05/11/22 01/29/23 Unknown History fluticasone 250 mcg-salmeterol 50 1 inh inhalation DAILY 05/11/22 01/29/23 Unknown History mcg/dose blistr powdr for inhalation (Advair Diskus) hydrochlorothiazide 25 mg tablet 25 mg PO DAILY 05/11/22 01/29/23 Unknown History meloxicam 15 mg tablet 15 mg PO DAILY 05/11/22 01/29/23 Unknown History metoprolol succinate 25 mg 1 tablet PO HS 05/11/22 01/29/23 Unknown History tablet,extended release 24 hr omeprazole 40 mg capsule,delayed 40 mg PO DAILY 05/11/22 01/29/23 Unknown History release Allergies Allergy/AdvReac Type Severity Reaction Status Date / Time prednisone Allergy Mild Palpitation Verified 01/05/25 06:47 s propoxyphene Allergy Unknown Rash Verified 01/05/25 06:47 Review of Systems 2 Review of Systems: All systems reviewed & are unremarkable except as noted in HPI and below PMFSH Past Medical History Medical History (Updated 01/05/25 @ 09:17 by Narendra Alexandre MD) Anxiety MVP (mitral valve prolapse) Asthma HTN (hypertension) Surgical History Surgical History H/O laparoscopy DnC 1988 H/O sinus surgery 2-1985 Social History Social History Smoking status: Never smoker Alcohol intake: current Alcohol use details: rare occasional Substance use: never Substance use type: does not use Living arrangements: with family Spiritual care concerns: No Exam 2 Narrative: APPEARANCE: Well appearing, no pain, no distress, well-nourished. HEAD: normocephalic, atraumatic. EYES: PERRLA/EOMI, conjunctivae clear. NOSE: Normal no drainage EARS:TMS clear with good light reflex. THROAT: Pharynx clear, no exudate. NECK: Supple. No adenopathy, no masses. RESPIRATORY: Airway patent, respirations nonlabored. Clear to auscultation bilaterally, no rales, rhonchi, wheezing. CARDIOVASCULAR: Regular rate and rhythm without murmurs rubs or gallops. ABDOMINAL: Soft, nontender, nondistended, normal bowel sounds MUSCULOSKELETAL: Moves all extremities. Strength/ROM intact, No edema, No calf tenderness. NEURO: Alert. Cranial nerves II through XII intact. Grossly intact SKIN: Warm, dry. Normal Color Course Vital Signs Vital signs: Vital Signs Temperature 97.2 F L 01/05/25 06:48 Pulse Rate 80 01/05/25 06:48 Respiratory Rate 17 01/05/25 06:48 Blood Pressure 99/51 L 01/05/25 06:48 Pulse Oximetry 99 01/05/25 06:48 Oxygen Delivery Room Air 01/05/25 06:48 Temperature 97.2 F L 01/05/25 06:48 Pulse Rate 62 01/05/25 09:30 Respiratory Rate 14 01/05/25 09:30 Blood Pressure 123/54 L 01/05/25 09:30 Pulse Oximetry 99 01/05/25 09:30 Oxygen Delivery Room Air 01/05/25 07:02 Medical Decision Making MDM Narrative Medical decision making narrative: 64-year-old female presenting to emergency department for evaluation nausea vomiting diarrhea. Patient was treated with 1 L IV fluids and 4 of IV Zofran. Patient is currently afebrile but does have a leukocytosis at 10.5 and hemoglobin of 12.8. No acute abnormalities on her CMP, lipase is mildly elevated at 473. UA was negative for infection patient was negative for influenza RSV and for COVID. Patient is tolerating her p.o. challenge. Patient was advised to follow a clear liquid diet and patient will be provided Zofran for nausea control. Patient family are comfortable with plan for discharge and close follow-up. Differential Diagnosis Differential Diagnosis: COVID, RSV, influenza, dehydration, gastroenteritis, enteritis Vital Signs Vital Signs: Vital Signs Temperature 97.2 F L 01/05/25 06:48 Pulse Rate 80 01/05/25 06:48 Respiratory Rate 17 01/05/25 06:48 Blood Pressure 99/51 L 01/05/25 06:48 Pulse Oximetry 99 01/05/25 06:48 Oxygen Delivery Room Air 01/05/25 06:48 Temperature 97.2 F L 01/05/25 06:48 Pulse Rate 62 01/05/25 09:30 Respiratory Rate 14 01/05/25 09:30 Blood Pressure 123/54 L 01/05/25 09:30 Pulse Oximetry 99 01/05/25 09:30 Oxygen Delivery Room Air 01/05/25 07:02 Lab Data Lab results reviewed: Yes I reviewed the patient's lab results. 01/05/25 07:11 01/05/25 07:11 Labs: Lab Results 01/05/25 01/05/25 01/05/25 Range/Units 07:11 07:25 08:31 WBC 10.5 H (4.5-10.0) K/mm3 RBC 4.06 L (4.2-5.4) M/mm3 Hgb 12.8 (12.0-15.0) g/dL Hct 38.2 (37.0-47.0) % MCV 94.1 (80-100) fl MCH 31.5 (26-34) pg MCHC 33.5 (32-36) g/dl RDW 12.7 (11.5-14.5) % Plt Count 287 (150-375) k/mm3 MPV 9.6 (7.4-10.4) fl Immature Gran % (Auto) 0.4 (0-0.5) % Neut % (Auto) 73.4 H (45.5-73.1) % Lymph % (Auto) 13.9 L (18.3-44.2) % [place] % (Auto) 10.5 H (2.6-8.5) % Eos % (Auto) 1.5 (0-4.4) % Baso % (Auto) 0.3 (0.2-1.2) % Lymph # (Auto) 1.46 (0.9-3.2) K/mm3 [place] # (Auto) 1.1 H (0.1-0.6) K/mm3 Eos # (Auto) 0.2 (0-0.3) K/mm3 Baso # (Auto) 0.0 (0.0-0.1) K/mm3 Abs Immat Gran (auto) 0.04 H (0.00-0.031) K/mm3 Absolute Neuts (auto) 7.7 H (1.3-6.7) K/mm3 Absolute Nucleated RBC 0.000 (0.0-0.012) K/mm3 Nucleated RBC % 0.0 (0.0-0.2) % Sodium 135 L (137-145) mmol/L Potassium 3.4 (3.4-5.0) mmol/L Chloride 100 (98-107) mmol/L Carbon Dioxide 27 (22-30) mmol/L Anion Gap 8 (4-12) mmol/L BUN 9 (7-17) mg/dL Creatinine 0.83 (0.7-1.0) mg/dL Estim Creat Clear Calc 61 ml/min Estimated GFR > 60 (59 - ) Glucose 126 H (65-110) mg/dL Lactic Acid 1.0 (0.7-2.0) mmol/L Calcium 8.1 L (8.4-10.2) mg/dL Total Bilirubin 0.7 (0.2-1.3) mg/dL AST 55 H (14-36) U/L ALT 41 H (6-35) U/L Alkaline Phosphatase 95 (38-126) U/L Total Protein 7.0 (6.3-8.2) g/dL Albumin 4.1 (3.5-5.1) g/dL Lipase 473 H (23-300) U/L Urine Color Yellow (Yellow) Urine Appearance Clear (Clear) Urine pH 5.5 (5.0-9.0) Ur Specific [place] 1.008 (1.001-1.035) Urine Protein Negative (Negative) mg/dL Urine Glucose (UA) Negative (Negative) mg/dL Urine Ketones Negative (Negative) mg/dL Ur Blood (Man) Negative (Negative) Urine Nitrate Negative (Negative) Urine Bilirubin Negative (Negative) Urine Urobilinogen 0.2 (<2.0) mg/dL Leukocyte Esterase Rfl Negative (Negative) ASHOK/UL Influenza A (RT-PCR) Negative (Negative) Influenza B (RT-PCR) Negative (Negative) RSV (RT-PCR) Negative (Negative) SARS-CoV-2 RNA (RT-PCR) Negative (Negative) Discharge Plan Discharge Clinical Impression: Nausea & vomiting Patient Disposition: Home, Self-Care Condition: Stable Instructions: Antibiotic Form, Clear Liquid Diet (ED), Acute Nausea and Vomiting (ED) Additional Instructions: Zofran as needed for nausea control. Clear liquid diet for the next 1-3 days. Have close follow-up with your primary care physician. If you have any worsening symptoms then please call or return to the emergency department. Patient Language: Ecuadorean Prescriptions: New ondansetron 4 mg tablet,disintegrating 4 mg PO Q8H PRN (Reason: nausea and vomiting) Qty: 14 0RF No Action metoprolol succinate 25 mg tablet extended release 24 hr 1 tablet PO HS estradiol 1 mg tablet 1 mg PO DAILY fluticasone propion-salmeterol [Advair Diskus] 250-50 mcg/dose blister with device 1 inh inhalation DAILY albuterol sulfate 90 mcg/actuation HFA aerosol inhaler 90 mcg inhalation DAILY PRN (Reason: Shortness Of Breath Or Wheezing) omeprazole 40 mg capsule,delayed release(DR/EC) 40 mg PO DAILY meloxicam 15 mg tablet 15 mg PO DAILY hydrochlorothiazide 25 mg tablet 25 mg PO DAILY Follow-up/Referrals: Amanda,Andres Tucker MD [Non-Staff] -
[2025-01-05 07:27] LABS: Alanine Aminotransferase 41 U/L (6-35); Albumin Level 4.1 g/dL (3.5-5.1); Alkaline Phosphatase 95 U/L (38-126); Anion Gap 8 mmol/L (4-12); Aspartate Amino Transferase 55 U/L (14-36); Bilirubin,Total 0.7 mg/dL (0.2-1.3); Blood Urea Nitrogen 9 mg/dL (7-17); Calcium 8.1 mg/dL (8.4-10.2); Carbon Dioxide 27 mmol/L (22-30); Chloride 100 mmol/L (98-107); Estimated CRCL calculation 61 ml/min; Estimated Glomerular Filt Rate > 60; Glucose 126 mg/dL (65-110); Lipase 473 U/L (23-300); Potassium 3.4 mmol/L (3.4-5.0); Sodium 135 mmol/L (137-145)
--- OUTSIDE RECORDS SUMMARY | 2025-01-05 07:28 | XMS_ITS ---
Author Organization [facility] (formerly [facility])[3] Reason for Referral No Reasons for Referral Entered Social History Social History Observation Description Start Date End Date Code Code System Current Smoking Status Tobacco smoking consumption unknown [id number] SNOMED CT Sex Assigned At Female 1960 07357-1 LOINC
--- OUTSIDE RECORDS SUMMARY | 2025-01-05 07:28 | XMS_ITS | Clinical Summary ---
Author Organization [facility] [employer] Address [address] [facility] [place] [address] Care Team Providers Care Vulcan Crewmember Name Role Phone Mahesh Hernandez MD Primary Care Provider [phone] Source Comments [facility],non-owned Affiliates and Associated Physician Practices is amultiple site organization consisting of ambulatory clinics and hospital sitesin [place], [place], [place]. This disclosure is being madepursuant to the Care Everywhere program and may not contain all information available regarding this patient. Last updated 18.[facility] [employer] Allergies Active Allergy Reactions Criticality Noted Date [...] Comments Blood Pressure 112/64 09/30/2017 10:10 AM RAZOR GRINDER Pulse 58 09/30/2017 10:10 AM RAZOR GRINDER Temperature 36.9 C (98.5 F) 09/30/2017 10:10 AM RAZOR GRINDER Respiratory Rate 16 09/30/2017 10:10 AM RAZOR GRINDER Oxygen Saturation 99% 09/30/2017 10:10 AM RAZOR GRINDER Inhaled Oxygen Concentration - - Weight 78.5 kg (173 lb) 09/30/2017 10:10 AM RAZOR GRINDER Height 162.6 cm (5' 4 ) 09/30/2017 10:10 AM RAZOR GRINDER Body Mass Index 29.7 09/30/2017 10:10 AM RAZOR GRINDER Plan of Treatment Health Maintenance Due Date [...] age to complete this topic Care Teams Vulcan Crewmember Relationship Specialty Start Date End Date Mahesh Hernandez MD [facility] [place] [address] PCP - General Family Medicine 08/14/16
--- OUTSIDE RECORDS SUMMARY | 2025-01-05 07:28 | XMS_ITS | Referral Summary ---
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
--- OUTSIDE RECORDS SUMMARY | 2025-01-05 07:28 | XMS_ITS | Clinical Summary ---
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
[2025-01-05 07:32] VITALS: BP 138/72; PULSE 75; RESP 17; O2SAT 100
--- NOTE | 2025-01-05 07:36 | PC.NURSE ---
coating technician asked pt if she was able to provide urine sample. Pt states she is unable to at this time. Instructed pt to use call light when she can provide a sample.
[2025-01-05 08:08] LABS: Influenza A QL RT-PCR Negative (Negative); Influenza B QL RT-PCR Negative (Negative); RSV RNA, RT-PCR Negative (Negative); SARS-CoV-2 RNA PCR Negative (Negative)
[2025-01-05 08:44] LABS: Add Urine Microscopic? NO; Appearance Urine Clear (Clear); Bilirubin Urine Negative (Negative); Blood Urine Negative (Negative); Color Urine Yellow (Yellow); Glucose Urine UA Negative (Negative); Ketones Urine Negative (Negative); Leukocyte Esterase Ur Negative LEU/UL (Negative); Nitrate Urine Negative (Negative); Protein Urine Negative (Negative); Specific Grav Ur 1.008 (1.001-1.035); Urobilinogen Urine 0.2 mg/dL (<2.0); pH Urine 5.5 (5.0-9.0)
[2025-01-05 09:30] VITALS: BP 123/54; PULSE 62; RESP 14; O2SAT 99
== END 2025-01-05 09:31 | disposition home or self-care (01) ==
PROVIDERS: Emergency Provider Emergency Medicine; PCP Family Medicine
DX: R11.2 Nausea with vomiting, unspecified (principal); Z20.822 Contact with and (suspected) exposure to COVID-19; I34.1 Nonrheumatic mitral (valve) prolapse; J45.909 Unspecified asthma, uncomplicated; I10 Essential (primary) hypertension; Z79.1 Long term (current) use of non-steroidal anti-inflammatories (NSAID); Z79.890 Hormone replacement therapy
CPT/HCPCS: 36415; 80053; 81003; 83605; 83690; 85025; 87637; 96361; 96374; 99284; J2405; J7030

== ENCOUNTER 2025-03-08 08:22 | Outpatient (CLI) | payer OTHER, SELFPAY ==
--- NOTE | 2025-03-08 | ECG_ITS ---
Test Date: 2025-03-08 09:01:44 Measurements Intervals [place] Rate: 60 P: 46 VT: 185 QRS: 32 QRSD: 96 T: 45 QT: 421 QTc: 422 Interpretive Statements SINUS RHYTHM NORMAL ECG No previous ECG available for comparison Electronically Signed On 03-08-2025 09:02:53 CDT by Vishal Ricardo D.O.
--- OUTSIDE RECORDS SUMMARY | 2025-03-08 08:35 | XMS_ITS | Clinical Summary ---
Author Organization [facility] [employer] Address [address] [place] [address] Care Team Providers Care Earth Boring Machine Operator Name Role Phone Mahesh Hernandez MD Primary Care Provider [phone] Source Comments [facility] [employer],non-owned Affiliates and Associated Physician Practices is amultiple site organization consisting of ambulatory clinics and hospital sitesin [place], [place], [place] and [place]. This disclosure is being madepursuant to the Care Everywhere program and may not contain all information available regarding this patient. Last updated 18.[facility] [employer] Allergies Active Allergy Reactions Criticality Noted Date Comments Corticosteroids Other 08/14/2016 tachycardia Medications * Be aware that medications may not be up to date on this document. Alwaysverify current medications with the patient. estradiol (ESTRACE) 1 MG tablet Take 1 mg by mouth once daily Active Fluticasone-Adithya meterol (ADVAIR HFA IN) Active Meloxicam (MOBIC PO) Active Montelukast Sodium (SINGULAIR PO) Activ e TiZANidine HCl (ZANAFLEX PO) Active ALBUTEROL SULFATE HFA IN Activ e omeprazole (PRILOSEC) 20 MG capsule Take 20 mg by mouth daily before breakfast Active benzonatate (TESSALON) 100 MG capsuleIndicati ons:Cough Take 1 capsule by mouth 3 times daily as needed for Cough Reasons: Cough 30 capsule 09/30/201 7 Active Social History Tobacco Use Types Packs/Day Years Used Date Smoking Tobacco: Passive Smo ke Exposure - Never Smoker Smokeless Tobacco: Never Comments No Sex and Gender Information Value Date Recorded Sex Assigned at Not on file Legal Sex Female 4:13 PM TREE THINNER Gender Identity Not on file Sexual Orientation Not on file Last Filed Vital Signs Vital Sign Reading Time Taken Comments Blood Pressure 112/64 09/30/2017 10:10 AM TREE THINNER Pulse 58 09/30/2017 10:10 AM TREE THINNER Temperature 36.9 C (98.5 F) 09/30/2017 10:10 AM TREE THINNER Respiratory Rate 16 09/30/2017 10:10 AM TREE THINNER Oxygen Saturation 99% 09/30/2017 10:10 AM TREE THINNER Inhaled Oxygen Concentration - - Weight 78.5 kg (173 lb) 09/30/2017 10:10 AM TREE THINNER Height 162.6 cm (5' 4) 09/30/2017 10:10 AM TREE THINNER Body Mass Index 29.7 09/30/2017 10:10 AM TREE THINNER Plan of Treatment Health Maintenance Due Date Last Done Comments COLOGUARD (AGES 45-75) - COL ON CA SCREENING 1960 COLON MONITORING 1962 COLONOSCOPY - COLON CA SCREENING 1962 CT COLONOGRAPHY - COLON CA SCREENING 1960 Colorectal Cancer Screening 1962 FIT - COLON CA SCREENING 1962 FLEX SIG - COLON CA SCREENING 1962 LIPID TESTING 1962 MAMMOGRAM 1962 HIV SCREENING 1977 HEPATITIS C SCREENING 01/14/1980 DTAP/TDAP/TD VACCINES (1 - Tdap) 1981 PNEUMOCOCCAL VACCINE 50+ (1 of 1 - PCV) 01/19/2012 ZOSTER VACCINE (1 of 2) 01/19/2012 SCREENING FOR DIABETES 08/05/2017 COVID-19 VACCINE ( - 2023-2 5 season) 2024 DEPRESSION SCREENING 10/04/2024 INFLUENZA VACCINE (Season Ended) 2025 Respiratory Syncytial Virus (RSV) Vaccine Pt: or [...] on patient's age to complete this topic Insurance [facility] Care Teams Earth Boring Machine Operator Relationship Specialty Start Date End Date Mahesh Hernandez MD [facility] [place] [address] PCP - General Family Medicine 08/14/16
--- OUTSIDE RECORDS SUMMARY | 2025-03-08 08:35 | XMS_ITS | Referral Summary ---
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
--- OUTSIDE RECORDS SUMMARY | 2025-03-08 08:35 | XMS_ITS | Data Portability ---
Author Organization [place] [facility] Pembe Panjur, Main Office Address [address] [place] [address] Assessment Encounter Date Assessment Date Assessment LastModified by Organization Details LastModified Time 05/17/2023 05/17/2023 Assessment: Mild OSAHS, AHI = 10 PLMD Hypoventilation Plan: The following were reviewed and explained to the patient: primary care/referral note [facility] home sleep study 04/05/23 AHI = 10, [...] were reviewed and explained to the patient: [facility] home sleep study 04/05/23 AHI = 5, supine AHI = 9 [facility] titration sleep study 08/19/23 sleep onset = [...] carrier. Patient will setup an appointment with [facility] for supplies and pressure adjustments. A major [...] were reviewed and explained to the patient: [facility] home sleep study 04/05/23 AHI = 5, supine AHI = 9 [facility] titration sleep study 08/19/23 sleep onset = [...] carrier. Patient will setup an appointment with [facility] for supplies and pressure adjustments. A major [...] were reviewed and explained to the patient: [facility] home sleep study 04/05/23 AHI = 5, supine AHI = 9 [facility] titration sleep study 08/19/23 sleep onset = [...] at 6-8 cmH2O. 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 Ramp start at 4 cmH2O. Keep ramp [...] carrier. Patient will setup an appointment with [facility] for supplies and pressure adjustments. A major [...] study - no auth required 2022 023 [facility], [address] [place], [address], 09/28/2023 17:58:37 Medication Orders None recorded. Patient TargetsNo targets recorded. Patient InstructionsNo instructions recorded. Reason for Referral None Reported. Results Created Date Observation Date Name Description Value Unit Range Abnormal Flag Note LastModifiedBy Organization Detail LastModifiedTime 09/28/2004/05/2023 home sleep study No observ ation record ed. [facility] Not Available 2022 17:50:08 09/28/20 23 08/19/2023 polys omnog rpeston, titra tion study No observ ation record ed. [facility] [address] [place], [address], 09/28/2023 17:58:37 Result Notes None recorded. Problems Name Problem SNOMED Code Status Onset Date Resolution Date Notes Provider Name and Address Organization Details Recorded Time Obstructive sleep apnea syndrome 96587133 Active 023 Darrel Howard MD [address] [facility] [address], [place], [address], [employer] [facility] 16:05:37 Notes:Medical History: Anxie ty Bilateral tinnitus Rhinosinusitis with postnasal drip Early REM onset Obesity with mild OSAHS, AHI = 5, 04/05/23, on autoCPAP c/o IVRC Hypertension Hyperlipidemia MVP OK Vit B12 deficiency Procedure History: ENSS 1993, 1996 Hemorrhoidectomy 1997 Cardiac catheterization 1998 Bilateral bunionectomy 1999 Cholecystectomy 2000 DAVID-BSO 2002 Colonoscopies 2013, 2022 EGD 2016 Cervical fusion 2016 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 Procedures Surgical History Date Name Laterality Status Provider Name and Address Organization Details Recorded Time Hysterectomy completed Johanne Pete MA [email or web address] 05/17/2023 15:34:57 Cholecystectomy completed Johanne castro MA [email or web address] 05/17/2023 15:35:03 radical bunionectomy completed Johanne Pete MA [employer] [facility] 05/17/2023 15:35:16 Lumpectomy completed Johanne Pete MA [employer] [facility] 05/17/2023 15:35:43 Sinus Surgery completed Johanne Pete MA [employer] [facility] 05/17/2023 15:35:50 Sinus Surgery completed Johanne Pete MA [email or web address] 05/17/2023 15:35:53 Neck Surgeries completed Johanne Pete MA [employer] [facility] 05/17/2023 15:36:03 Imaging Results None recorded. Procedure Notes None recorded. Medical Equipment None Reported. Allergies Allergen ID Allergen Name Allergen Category Reaction Reaction Severity Criticality Documentation Date Start Date Code Code System Note Provider Name and Address Organization Details Recorded Time 34168 prednison e medicatio n Not available Not available Not available 04/07/2023 8640 RxAlexei Howard MD [address], [place], [address], [facility] [employer] [facility] [employer] [facility] 3 19:43:04 44927 Acetamino phen / Propoxyph leonor medicatio n Not available Not available Not available 04/07/2023 25905 RxAlexei Howadr MD [address], [place], [address], [facility] [employer] [facility] [employer] [facility] 3 19:43:12 Medications Name Sig Start Date Stop [...] completed Not Available Not Available Not Available Trelegy Ellipta 200 mcg-62.5 mcg-25 mcg powder for [...] Not Available Not Available Vitals Date Recorded Heart rate Respiratory rate Provider N lili and Address Organization Details Last Updated DateTime 11/29/2024 66 /min 15 /min Darrel Howard MD [address], [place], [address], [place] [employer] 11/29/2024 08:52:28 Date Recorded Body height Body mass index (BMI) Body weight Body temperature Heart rate Oxygen saturation Oxygen saturation in Arterial blood by Pulse oximetry Systolic blood pressure Diastolic blood pressure Provider Name and Address Organization Details Last Updated DateTime 5 160.02 cm 31.5 kg/m2 63386 g 98.3 [degF] 66 /min 99 % 99 % 110 mm[Hg] 68 mm[Hg] Maura Jolley MA [employer] 5 08:35:05 Date Recorded Heart rate Respiratory rate Provider Heron pearson and Address Organization Details Last Updated DateTime 12/28/2023 76 /min 15 /min Darrel Howard MD [address], [address] [employer], [place], [address], [employer] 12/28/2023 16:21:31 Date Recorded Body height Body mass index (BMI) Body weight Body temperature Heart rate Oxygen saturation Oxygen saturation in Arterial blood by Pulse oximetry Systolic blood pressure Diastolic blood pressure Provider Name and Address Organization Details Last Updated DateTime 4 160.02 cm 30.9 kg/m2 14325.2 3 g 98 [degF] 76 /min 96 % 96 % 114 mm[Hg] 68 mm[Hg] Maura Jolley MA [email or web address] 4 16:04:49 Date Recorded Heart rate Respiratory rate Provider Heron lili and Address Organization Details Last Updated DateTime 05/17/2023 71 /min 15 /min Darrel Howard MD [address], [place], [address], [place] [employer] [facility] P[employer] 05/17/2023 15:47:51 Date Recorded Body weight Body mass index (BMI) Body height Body temperature Heart rate Oxygen saturation Oxygen saturation in Arterial blood by Pulse oximetry Systolic blood pressure Diastolic blood pressure Provider Name and Address Organization Details Last Updated DateTime 3 25712.5 6 g 28.9 kg/m2 160.02 cm 98.3 [degF] 71 /min 97 % 97 % 114 mm[Hg] 68 mm[Hg] Johanne Pete MA [facility] [employer] [facility] 15:39:05 Date Recorded Heart rate Respiratory rate Provider N lili and Address Organization Details Last Updated DateTime 09/06/2023 72 /min 15 /min Darrel Howard MD [address] [facility] [facility] [address], [place], [address], [facility] [employer] [facility] 09/06/2023 17:31:55 Date Recorded Body height Body mass index (BMI) Body weight Body temperature Heart rate Oxygen saturation Oxygen saturation in Arterial blood by Pulse oximetry Systolic blood pressure Diastolic blood pressure Provider Name and Address Organization Details Last Updated DateTime 3 160.02 cm 30.1 kg/m2 44954.7 g 98.2 [degF] 72 /min 97 % 97 % 138 mm[Hg] 80 mm[Hg] Johanne Pete MA [facility] [employer] [facility] 17:15:27 Social History Question Answer Notes LastModified by Organizat ion Details LastModified Time Tobacco Smoking Status Never Smoker Johanne Pete MA null, [facility] [employer] [facility] 05/17/2023 15:33:07 What Is Your Level Of Caffeine Consumption? Moderate Information not available 05/17/2023 In The 14 Days Before Symptom Onset, Have You Had Close Contact With A Laboratory-confi rmed COVID-19 While That Case Was Ill? No Information not available 05/17/2023 In The 14 Days Before Symptom Onset, Have You Had Close Contact With A Person Who Is Under Investigation For COVID-19 While That Person Was Ill? No Information not available 05/17/2023 What Type Of Diet Are You Following? REGULAR Information not available 05/17/2023 Do You Have An Electrostatic Air Filter? Yes Information not available 05/17/2023 Do You Have A Humidifier? No Information not available 05/17/2023 [facility] You Live[facility] Information not available 12/28/2023 Do You Have [...] Outside Information not available 05/17/2023 Do You Use Sunscreen Routinely? No Information not available 05/17/2023 Have You Recently Traveled Abroad? No Information not available 05/17/2023 Do You Have Any Dietary Restrictions? No Information not available 05/17/2023 Sex: Unknown Functional Status Question Answer Note LastModified by Organizat ion Details LastModified Time Do you use any illicit or recreational drugs? No Information not available 05/17/2023 What is your level of alcohol consumption? None Information not available 05/17/2023 Are you currently employed? Yes Information not available 05/17/2023 Have you been exposed to chemicals or toxins? 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 Moderate Information not available 05/17/2023 Mental Status Question Answer Note LastModified by Organization D etails LastModified Time Do you feel stressed (tense, restless, nervous, or anxious, or unable to sleep at night)? [id number] Information not available 12/28/2023 Family History Relationship Description Onset Age of this Age Resolved Age Notes LastModified by Organization Details LastModified Time Brother Obstructive sleep apnea syndrome Not available 2022 15:57:34 Son Obstructive sleep apnea syndrome Not available 2022 15:57:38 Mother Congestive heart failure Not available 2022 15:57:49 Father Malignant neoplasm of lung Not available 2022 15:58:03 Sister Fibromyalgia Not availab le 05/17/2023 15:58:28 Maternal Uncle Heart disease Not available 2022 15:58:48 Medical History No medical history recorded. Gynecological HistoryNo gynecological history recorded. Obstetrics History GPAL:G 0 P 0 0 0 0 Past Encounters Encounter ID Performer Location Encounter Start Date Encounter Closed Date Diagnosis/Indication Diagnosis SNOMED-CT Code Diagnosis ICD10 Code Diagnosis Note [id number] Darrel Howard MD [facility] [place] [address] 05/17/2023 15:13:38 05/18/2023 09:39:38 Obstructive sleep apnea syndrome 13539566 G47.33 G47.30 G47.36 G47.61 [id number] Darrel Howard MD [facility] [place] [address] 09/06/2023 16:58:38 09/08/2023 09:52:40 Obstructive sleep apnea syndrome 36251508 G47.33 [id number] Darrel Howard MD [facility] [place] [address] 12/28/2023 15:54:45 12/29/2023 08:10:16 Obstructive sleep apnea syndrome 46175762 G47.33 [id number] Darrel Howard MD [facility] [place] [address] 11/29/2024 08:26:11 11/29/2024 09:15:52 Obstructive sleep apnea syndrome 86238068 G47.33 Health Concerns Section Related Observation LastModified by Organization Detai ls LastModified Time None Recorded Concern Status LastModified by Organization Details LastModified Time None Recorded Advance Directives Directive None Recorded Payers Encounter Date Sequence Insurance Name Policy Number Policy Saba Covered Member ID Saba Member ID Guarantor Name 09/06/2023 1 [place] [id number] Darsh[place] [id number] Darshana P [place] 12/28/2023 1 [place] [id number] Darshana [place] [id number] Darshana P [place] 11/29/2024 1 [place] [id number] Darshana P [place] [id number] Darshana P [place] Notes Date Note Type Note Provider Name and Address Organization Details Recorded Time 05/17/2023 text/html Primary care/Ref erring provider: Andres Patel MD During the [facility] home sleep study on 04/05/23, AHI = [...] high chance of dozing. Darrel Howard MD [address] [place] [address], [address], [place] [facility] [employer] 05/17/2023 16:17:39 09/06/2023 text/html Primary care/Ref erring provider: Mahesh Hernandez MD During the [facility] home sleep study on 04/05/23, AHI = 5, supine AHI = 9. During the [facility] titration sleep study on 08/19/23, sleep onset [...] moderate chance of dozing. Darrel Howard MD [address] [facility], [place], [address], [place] [facility] [employer] [facility] 09/28/2023 17:32:26 12/28/2023 text/html Primary care/Ref erring provider: Mahesh Hernandez MD CC: The nasal mask causes xerostomia and I switched to full face mask. During the [facility] home sleep study on 04/05/23, AHI = 5, supine AHI = 9. During the [facility] titration sleep study on 08/19/23, sleep onset [...] moderate chance of dozing. Darrel Howard MD [address] [place] [address], [address], [facility] [email or web address] [facility] 12/28/2023 16:22:01 11/29/2024 text/html Primary care/Ref erring provider: Mahesh Hernandez MD During the [facility] home sleep study on 04/05/23, AHI = 5, supine AHI = 9. During the [facility] titration sleep study on 08/19/23, sleep onset [...] moderate chance of dozing. Darrel Howard MD [address] [place] [address], [place] [address], [place], [address], [facility] 11/29/2024 08:59:54 OBGyn Episode No OBEpisode recorded.
--- OUTSIDE RECORDS SUMMARY | 2025-03-08 08:35 | XMS_ITS | Clinical Summary ---
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
[2025-03-08 09:00] LABS: Hematocrit 38.7 % (37.0-47.0); Hemoglobin 12.9 g/dL (12.0-15.0); Mean Corpuscular HGB Conc 33.3 g/dl (32-36); Mean Corpuscular Hemoglobin 31.1 pg (26-34); Mean Corpuscular Volume 93.3 fl (80-100); Mean Platelet Volume 9.8 fl (7.4-10.4); Platelet Count Result 342 k/mm3 (150-375); Red Blood Count 4.15 M/mm3 (4.2-5.4); Red Cell Distribution Width 12.6 % (11.5-14.5); White Blood Count 5.5 K/mm3 (4.5-10.0)
[2025-03-08 09:14] LABS: Alanine Aminotransferase 21 U/L (6-35); Albumin Level 4.4 g/dL (3.5-5.1); Alkaline Phosphatase 71 U/L (38-126); Anion Gap 5 mmol/L (4-12); Aspartate Amino Transferase 30 U/L (14-36); Bilirubin,Total 0.8 mg/dL (0.2-1.3); Blood Urea Nitrogen 14 mg/dL (7-17); Calcium 9.4 mg/dL (8.4-10.2); Carbon Dioxide 30 mmol/L (22-30); Chloride 101 mmol/L (98-107); Estimated Glomerular Filt Rate > 60; Glucose 103 mg/dL (65-110); Sodium 136 mmol/L (137-145); Total Protein 7.8 g/dL (6.3-8.2)
== END 2025-03-08 08:23 | disposition home or self-care (01) ==
PROVIDERS: PCP Family Medicine; Visit Provider Orthopaedic Surgery
DX: Z01.818 Encounter for other preprocedural examination (principal); M75.102 Unspecified rotator cuff tear or rupture of left shoulder, not specified as traumatic; Z01.810 Encounter for preprocedural cardiovascular examination; Z01.811 Encounter for preprocedural respiratory examination; Z01.812 Encounter for preprocedural laboratory examination
CPT/HCPCS: 36415; 80053; 85027; 93005